=== PATIENT | female | born 1995 | race Caucasian/White ===

== ENCOUNTER → 2020-09-18 13:18 | Outpatient (BNVA) | payer MEDICAID, SELFPAY | PROVIDERS: Family Provider Family Medicine; PCP Family Medicine; Referring Provider Family Medicine; Visit Provider Podiatrist Foot & Ankle Surgery | DX: M79.671 Pain in right foot (principal) | CPT/HCPCS: 73630 ==

== ENCOUNTER 2021-01-09 07:51 | Outpatient (CLI) | payer BC, MEDICAID, SELFPAY ==
--- NOTE | 2021-01-09 08:04 | MR_ITS ---
WS: [id number] MRI HEAD WITH CONTRAST TECHNIQUE: Sagittal T1, T2 axial, T2 axial FLAIR, axial susceptibility weighted imaging, axial diffus ion weighted images, and coronal T2 images were obtained. Pre and post-T1 axial and post T1 coronal i mages. ADC and FSPGR images. CLINICAL INFORMATION: PAPILEDEMA COMPARISON: None. FINDINGS: No evidence restricted diffusion to suggest acute ischemia. Ventricular system and basal cisterns are patent. Prominent Chiari I malformation with cerebellar tonsils 9.5 mm below the foramen magnum exte nding to the posterior arch of C1. Mild crowding at the foramen magnum. Crowding at the level of the brain stem with minimal mass effect at the cervical medullary junction. No edema or signal abnormalit y in the brain stem. No suspicious intracranial signal abnormalities. No hydrocephalus. Normal posterior fossa. Normal vas cular flow voids at the skull base. Incidental left retrocerebellar arachnoid cyst. This measures 2.5 x 4.1 cm. Mastoid air cells are well aerated. Retention cysts in the maxillary sinuses. No hemosider in on susceptibly weighted images. Normal optic chiasm and pituitary infundibulum. Temporal lobes and hippocampal formations are normal in appearance. No signal abnormalities in the mesial temporal lobe s. No abnormal gadolinium enhancement. Incidental benign venous angioma in the right cerebellum. Normal visualized dural venous sinuses. No visualized optic nerve edema. No evidence of optic neuritis. MR/MR head wo/w con [id number] IMPRESSION: 1. No evidence of restricted diffusion to suggest acute ischemia. 2. Prominent Chiari 1 malformation with cerebellar tonsils extending to the C1 arch. Cerebellar tonsils approximately 9.4 mm below the foramen magnum with mi ld crowding at the foramen magnum. Brain stem signal is normal. 3. No intracranial hydrocephalus. 4. Recommend MRI of the cervical and thoracic spine to exclude syrinx. 5. No suspicious intracranial signal abnormalities. 6. No abnormal gadolinium enhancement. Incidental benign venous angioma right cerebellum. 7. Retention cysts in the maxillary sinuses. 8. Incidental benign left retrocerebellar arachnoid cyst.
[2021-01-09] MEDS: gadobenate dimeglumine 20 mL vial IV (08:44)
== END 2021-01-09 07:52 | disposition home or self-care (01) ==
PROVIDERS: PCP Family Medicine; Visit Provider Family Medicine
DX: H47.10 Unspecified papilledema (principal); G93.0 Cerebral cysts; M27.40 Unspecified cyst of jaw; Q28.3 Other malformations of cerebral vessels
CPT/HCPCS: 70553; A9577

== ENCOUNTER → 2021-07-27 14:42 | Outpatient (BNVA) | payer BC, MEDICAID, SELFPAY | PROVIDERS: PCP Family Medicine; Visit Provider Obstetrics & Gynecology | DX: Z12.4 Encounter for screening for malignant neoplasm of cervix (principal); N93.9 Abnormal uterine and vaginal bleeding, unspecified | CPT/HCPCS: 84146; 84443; 88175 ==

== ENCOUNTER 2021-08-11 14:13 | Outpatient (CLI) | payer BC, MEDICAID, SELFPAY ==
--- NOTE | 2021-08-11 14:30 | US_ITS ---
WS: [id number] TRANSABDOMINAL PELVIC AND TRANSVAGINAL PELVIC ULTRASOUND HISTORY: N93.9 - Abnormal uterine and vaginal bleeding, unspecified COMPARISON: None available. Uterus: 9.2 cm x 5.0 cm x 4.0 cm. Normal size anteverted uterus. No far lateral masses. Endometrium: 0.7 cm. The IUD is positioned low in the endometrial canal and extends into the cervix. Dense shadowing from the IUD extends through the endocervical junction. Approximately 10 mm of the IU D extend into the cervix. Right ovary: 2.6 cm x 2.5 cm x 2.1 cm. Normal size. Normal vascularity. Left ovary: 3.7 cm x 3.0 cm x 2.1 cm. Small follicle. Normal vascularity. No free fluid. US/US pelvic with transvaginal IMPRESSION: 1. Abnormally positioned IUD. IUD positioned low and extends into the cervix. 2. Otherwise negative.
== END 2021-08-11 14:14 | disposition home or self-care (01) ==
LOC: RAD 14:13
PROVIDERS: PCP Family Medicine; Visit Provider Obstetrics & Gynecology
DX: N93.9 Abnormal uterine and vaginal bleeding, unspecified (principal); Z30.431 Encounter for routine checking of intrauterine contraceptive device
CPT/HCPCS: 76830; 76856

== ENCOUNTER 2021-11-21 19:56 | Emergency (ER) | payer BC, MEDICAID, SELFPAY ==
[2021-11-21 20:06] VITALS: PULSE 127; RESP 16; TEMP 37.2; O2SAT 95
[2021-11-21 20:09] VITALS: PULSE 80; RESP 18; O2SAT 96
--- NOTE | 2021-11-21 20:21 | XRR_ITS ---
PROCEDURE INFORMATION: Exam: XR Chest Exam date and time: 11/21/2021 8:29 PM Age: 26 years old Clinical indication: Cough; Additional info: Cough fever TECHNIQUE: Imaging protocol: Radiologic exam of the chest. Views: 1 view. COMPARISON: No relevant prior studies available. FINDINGS: Lungs: Right upper lobe pneumonia. Pleural spaces: Unremarkable. No pleural effusion. No pneumothorax. Heart/Mediastinum: Unremarkable. No cardiomegaly. Bones/joints: Unremarkable. XR/XR chest 1V portable [id number] IMPRESSION: Right upper lobe pneumonia.
--- NOTE | 2021-11-21 20:21 | W.ED.GENADLT ---
HPI - General Adult General: Chief complaint: General Medical Stated complaint: light headed, sob, coughing Time Seen by Provider: 11/21/21 20:12 History of Present Illness: 26-year-old female comes in today with complaints of fever, lightheadedness, cough and increased shortness of breath. Patient appears unwell but not toxic. Patient appears in no pain. Patient has used a inhaler before in the past. Patient denies any chronic lung problems or significant chronic conditions. Patient reports symptoms since Tuesday. Patient was seen on and diagnosed with ear infection and started on amoxicillin. Associated symptoms: Reports malaise; Deny nausea or vomiting Review of Systems Const: Reports: fever(s), body aches and malaise Resp: Reports: non-productive cough GI: Denies: nausea or vomiting Neuro: Reports: dizziness PFSH ED PFSH: Medical History Anxiety and depression Diagnosed in 2020 and is on medication managed by PMD. Does not have a therapist/psychiatrist No pertinent past medical history Denies diabetes, asthma, hypertension, seizures, DVT/PE PCP: Dr. Porter Surgical History History of delivery x 2 07/18/2015----Documented low transverse section. Performed by Dr. Roman Olson at [facility] in [place], [place] (2 layer closure of uterus) 03/14/2017----repeat low transverse delivery by Dr. Wheeler at [facility] [place]. Family History Grandfather Diabetes paternal Heart disease paternal Father Hyperlipidemia Hypertension Denies family history of Colon cancer Ovarian cancer Breast cancer Uterine cancer Thyroid condition Stroke Physical Exam Const: COMMON NORMALS: alert HENMT: COMMON NORMALS: normocephalic HEAD & SCALP: normocephalic NOSE: Nasal discharge present THROAT: posterior oropharynx abnormal erythema Neck/C-Spine: COMMON NORMALS: full ROM Resp: COMMON NORMALS: normal respiratory effort AUSCULTATION: rales on the right in the mid lung almeida Cardio: COMMON NORMALS: regular rate and regular rhythm RATE: regular rate RHYTHM: regular rhythm Extremity: COMMON NORMALS: full ROM Neuro: SENSORIUM/ORIENTATION: Yes alert Skin: COMMON NORMALS: turgor normal GENERAL SKIN EXAM: turgor normal Course Vital Signs: Vital signs: Vital Signs Temperature 99.0 F 11/21/21 20:06 Pulse Rate 127 H 11/21/21 20:06 Respiratory Rate 16 11/21/21 20:06 Pulse Oximetry 95 11/21/21 20:06 Oxygen Delivery Me thod 11/21/21 20:06 [facility] - General Adult Medical Decision Making 26-year-old female comes in today with complaints of persistent cough with fever since Tuesday. Patient was started on amoxicillin on continues to have persistent cough with congestion and fever. Patient appears unwell but not toxic. Patient oxygenation is 95% room air. Patient has temperature of 99. Pulse rate was 127. Patient does report that she has been drinking about 5 large cups of water a day. Patient had some crackles in the right middle lung. Differential diagnosis includes viral syndrome, upper respiratory infection, bronchitis, pneumonia. Chest x-ray notes consolidation in the right middle lung suggestive of probable pneumonia. Patient be continued on her amoxicillin we will add azithromycin along with the antibiotic for further coverage. Patient was also given an inhaler and a dose of dexamethasone. Patient reported understanding of care plan need for follow-up or return to the ER. Discharge Plan Discharge Patient Disposition: Home Clinical Impression: Pneumonia Qualifiers: Pneumonia type: due to unspecified organism Laterality: right Lung location: middle lobe of lung Qualified Code(s): J18.9 - Pneumonia, unspecified organism Condition: Stable Prescriptions: New azithromycin 250 mg tablet 250 mg PO DAILY 4 Days Qty: 4 0RF Rx Instructions: start on day 2 of therapy No Action citalopram 10 mg tablet 10 mg PO DAILY norethindrone-e.estradiol-iron [02/26 (28)] 1 mg-20 mcg (21)/75 mg (7) tablet 1 tab PO DAILY Qty: 84 0RF Discharge Orders: Discharge ED (Routine); Ordered 11/21/21 Ordered By: Fahad Phillips Referrals: Joey Porter MD [Primary Care Provider] - Discharge Diet: Usual diet Discharge Activity: Increase activity as tolerated Patient Instructions: Pneumonia (ED), Pain Management Activity Restrictions/Additional Instructions: Continue amoxicillin. Take azithromycin 250 mg daily with the amoxicillin until antibiotics are complete. Drink plenty of water. Use albuterol 2 puffs every 4 hours as needed for cough or chest congestion. Follow-up with primary care in 3 days. Return to ED for new concerns or worsening symptoms. Stand Alone Forms: Work/School Release Coding Level of Care Code ED Logistics Team Lead for Ayesha Fwper Exam Detailed
[2021-11-21] MEDS: azithromycin 250 mg Tablet 500 MG PO (21:27)
[2021-11-21] MEDS: dexamethasone 4 mg Tablet 10 MG PO (21:28)
[2021-11-21] MEDS: cefTRIAXone 1,000 MG in lidocaine 1% 2.1 ML 2.1 MG IM (21:29)
[2021-11-21 21:35] VITALS: BP 148/88; PULSE 112; RESP 18; O2SAT 96
[2021-11-21] MEDS: albuterol 8 gm MDI 2 PUFF INHALATION (21:50)
== END 2021-11-21 21:51 | disposition home or self-care (01) ==
PROVIDERS: Emergency Provider Nurse Practitioner Family; PCP Family Medicine
DX: J18.9 Pneumonia, unspecified organism (principal)
CPT/HCPCS: 71045; 94640; 96372; 99284; J0696; J3535; J8540; Q0144

== ENCOUNTER 2022-01-05 02:17 | Emergency (ER) | payer BC, MEDICAID, SELFPAY ==
[2022-01-05 02:20] VITALS: BP 157/115; PULSE 110; RESP 20; TEMP 37.1; O2SAT 99; BMI 48.4
--- NOTE | 2022-01-05 02:30 | CTR_ITS ---
PROCEDURE INFORMATION: Exam: CT Abdomen And Pelvis Without Contrast Exam date and time: 01/05/2022 2:57 AM Age: 26 years old Clinical indication: Abdominal pain; Right; Prior surgery; Surgery type: Csection; Patient HX: C/O RT flank pain; Additional info: Right flank pain TECHNIQUE: Imaging protocol: Computed tomography of the abdomen and pelvis without contrast. Total images: 677 Radiation optimization: All CT scans at this facility use at least one of these dose optimization techniques: automated exposure control; mA and/or kV adjustment per patient size (includes targeted exams where dose is matched to clinical indication); or iterative reconstruction. COMPARISON: US pelvic with transvaginal 08/11/2021 2:37 PM RADIATION DOSE METRICS: Total DLP (mGy-cm): 1228.26 FINDINGS: Liver: Normal. No mass. Gallbladder and bile ducts: Normal. No calcified stones. No ductal dilation. Pancreas: Normal. No ductal dilation. Spleen: Normal. No splenomegaly. Adrenal glands: Normal. No mass. Kidneys and ureters: 7 mm right-sided ureteropelvic junction stone. Mild hydronephrosis. Stomach and bowel: Unremarkable. No obstruction. No mucosal thickening. Appendix: No evidence of appendicitis. Intraperitoneal space: Unremarkable. No free air. No significant fluid collection. Vasculature: Incidental phleboliths noted. Lymph nodes: 3 mm subpleural nodule at the lung bases have a triangular appearance and are consistent with intrapulmonary lymph nodes. Urinary bladder: Unremarkable as visualized. Reproductive: Unremarkable as visualized. Bones/joints: Unremarkable. No acute fracture. Soft tissues: Unremarkable. CT/CT kidney stone [id number] IMPRESSION: 7 mm right-sided ureteropelvic junction stone. Mild hydronephrosis.
--- NOTE | 2022-01-05 02:30 | W.ED.ABDPA2 ---
HPI - Abdominal Pain General: Chief Complaint: Abdominal Pain Stated Complaint: sharp pain on right side Time Seen by Provider: 01/05/22 02:24 Source: patient Mode of arrival: ambulatory Limitations: no limitations History of Present Illness: 26-year-old female states that she woke up at midnight with severe right-sided flank pain. States it radiates into her groin she had nausea states pain is currently 9 out of 10. She denies any worsening symptoms or improving symptoms. She states not worse with movement or touch no history of kidney stones in the past. Associated Symptoms: Reports nausea; Denies chills and fever(s) Related Data: Date of Last Menstrual Period: 12/12/21 Review of Systems Const: Denies: fever(s), chills, body aches or change in appetite Eyes: Denies: blurry vision or eye discomfort ENMT: Denies: throat pain or dental pain Card: Denies: chest pain Resp: Denies: dyspnea GI: Reports: abdominal pain and nausea : Reports: flank pain Musc: Denies: neck pain or back pain Skin/Breast: Denies: rash Neuro: Denies: headache(s) Psych: Denies: depression Colton/Lymph: Denies: easy bruising All/Imm: Denies: urticaria PFSH ED PFSH: Medical History Anxiety and depression Diagnosed in 2020 and is on medication managed by PMD. Does not have a therapist/psychiatrist No pertinent past medical history Denies diabetes, asthma, hypertension, seizures, DVT/PE PCP: Dr. Porter Surgical History History of delivery x 2 07/18/2015----Documented low transverse section. Performed by Dr. Roman Olson at [facility] in [place], [place] (2 layer closure of uterus) 03/14/2017----repeat low transverse delivery by Dr. Wheeler at [facility] [place]. Family History Grandfather Diabetes paternal Heart disease paternal Father Hyperlipidemia Hypertension Denies family history of Colon cancer Ovarian cancer Breast cancer Uterine cancer Thyroid condition Stroke Female Reproductive History: Date of last menstrual period: 12/12/21 Physical Exam Const: COMMON NORMALS: no acute distress, patient oriented x3 and healthy appearing HENMT: COMMON NORMALS: normocephalic and atraumatic HEAD & SCALP: normocephalic and atraumatic Eye: COMMON NORMALS: Equal, round and reactive pupils present and EOMs intact bilaterally PUPIL: Yes Equal, round and reactive pupils present Neck/C-Spine: COMMON NORMALS: full ROM and supple Chest: COMMONS NORMALS: normal inspection of the chest and normal palpation of entire chest wall Resp: COMMON NORMALS: normal respiratory effort, No retractions, No use of accessory muscles and clear to auscultation bilaterally AUSCULTATION: clear to auscultation bilaterally Cardio: COMMON NORMALS: regular rate, regular rhythm and No murmurs present (Cardio) RATE: regular rate RHYTHM: regular rhythm GI: COMMON NORMALS: Normal to inspection, nondistended, normoactive bowel sounds present, Soft to palpation, non-tender and no masses PALPATION: Yes Soft to palpation Extremity: COMMON NORMALS: normal to inspection and full ROM Neuro: COMMON NORMALS: patient oriented x3, moves all extremities and no focal motor deficits Psych: COMMON NORMALS: mental status grossly normal, Normal thought process present and cooperative THOUGHT PROCESS: Normal thought process present Skin: COMMON NORMALS: no rashes or lesions noted and no wounds GENERAL SKIN EXAM: no rashes or lesions noted Course Vital Signs: Vital signs: Vital Signs Temperature 98.8 F 01/05/22 02:20 Pulse Rate 110 H 01/05/22 02:20 Respiratory Rate 16 01/05/22 03:59 Blood Pressure 157/115 01/05/22 02:20 Pulse Oximetry 99 01/05/22 03:59 Oxygen Delivery Me thod 01/05/22 02:20 MDM - Abdominal Pain Medical Decision Making Patient presents here with flank pain CT shows a kidney stone her pain has improved here we will prescribe her pain meds for home get her follow-up with Dr. Thurston she is return if worsening. Lab Data 01/05/22 02:27 01/05/22 02:27 Labs/Radiology: Radiology Impressions Abdomen/Pelvis CT 01/05/22 02:30 IMPRESSION: 7 mm right-sided ureteropelvic junction stone. Mild hydronephrosis. Laboratory Results WBC 11.7 10^3/uL (4.0-10.0) H 01/05/22 02: RBC 5.14 10^6/uL (4.1-5.3) 01/05/22 02: Hgb 14.2 g/dL (11.5-15.3) 01/05/22 02: Hct 44.3 % (37.0-47.0) 01/05/22 02: MCV 86.2 fl (81-99) 01/05/22 02: MCH 27.6 pg (28.0-34.0) L 01/05/22 02: MCHC 32.1 g/dL (30.0-36.0) 01/05/22 02: RDW 13.0 % (12.1-15.1) 01/05/22 02: Plt Count 301 10^3/cmm (130-400) 01/05/22 02: MPV 10.5 fL (7.4-10.4) H 01/05/22 02: Neut % (Auto) 69.4 % 01/05/22 02: Lymph % (Auto) 19.7 % 01/05/22 02: Blanco % (Auto) 7.6 % 01/05/22 02: Eos % (Auto) 1.9 % 01/05/22 02: Baso % (Auto) 1.0 % 01/05/22 02: Neut # (Auto) 8.11 10^3/uL (1.8-7.7) H 01/05/22 02: Lymph # (Auto) 2.3 10^3/uL (0.8-4.8) 01/05/22 02:27 Blanco # (Auto) 0.9 10^3/uL (0.2-0.9) 01/05/22 02: Eos # (Auto) 0.2 10^3/uL (0.0-0.8) 01/05/22 02: Baso # (Auto) 0.1 10^3/uL (0.0-0.1) 01/05/22 02:27 Nucleated RBC % (auto) 0 % 01/05/22 02: Nucleated RBCs # 0.0 /100WBC 01/05/22 02:27 Sodium 137 mmol/L (136-145) 01/05/22 02:27 Potassium 4.1 mmol/L (3.5-5.1) 01/05/22 02:27 Chloride 105 mmol/L (98-107) 01/05/22 02:27 Carbon Dioxide 21 mmol/L (22-29) L 01/05/22 02:27 Anion Gap 15.1 (5-19) 01/05/22 02:27 BUN 17 mg/dL (6-20) 01/05/22 02:27 Creatinine 0.7 mg/dL (0.5-0.9) 01/05/22 02:27 GFR Calculation 100.4 mL/min (90-130) 01/05/22 02:27 Glucose 109 mg/dL (65-115) 01/05/22 02:27 Calculated Osmolality 286 mOsm/kg (285-295) 01/05/22 02:27 Calcium 9.3 mg/dL (8.5-10.5) 01/05/22 02:27 Total Bilirubin 0.7 mg/dL (0.15-1.2) 01/05/22 02:27 AST 19 U/L (0-32) 01/05/22 02:27 ALT 28 U/L (0-33) 01/05/22 02:27 Alkaline Phosphatase 70 U/L (35-105) 01/05/22 02:27 Total Protein 7.2 g/dL (6.6-8.7) 01/05/22 02:27 Albumin 4.0 g/dL (3.5-5.2) 01/05/22 02:27 Globulin 3.2 g/dL (1.3-4.6) 01/05/22 02:27 Lipase 28 U/L (13-60) 01/05/22 02:27 HCG, Qual Negative (Negative) 01/05/22 02:27 Urine Color Yellow (Yellow) 01/05/22 02:30 Urine Appearance Hazy (CLEAR) A 01/05/22 02:30 Urine pH 5 (5-7) 01/05/22 02:30 Ur Specific Merna 1.030 (1.005-1.030) 01/05/22 02:30 Urine Protein 1+ (Negative) H 01/05/22 02:30 Urine Glucose (UA) Norm (Normal) 01/05/22 02:30 Urine Ketones Negative (Negative) 01/05/22 02:30 Urine Blood 2+ (Negative) H 01/05/22 02:30 Urine Nitrate Negative (Negative) 01/05/22 02:30 Urine Bilirubin Neg (Negative) 01/05/22 02:30 Urine Urobilinogen Norm mg/dL (Negative) 01/05/22 02:30 Ur Leukocyte Esterase 2+ (Negative) H 01/05/22 02:30 Urine RBC 15-25 /hpf (0-2) H 01/05/22 02:30 Urine WBC 80-100 /hpf (0-5) H 01/05/22 02:30 Ur Squamous Epith Cells 0-4 /hpf (0-5) H 01/05/22 02:30 Amorphous Sediment Not Reportable 01/05/22 02:30 Urine Bacteria 2+ /hpf (NONE) H 01/05/22 02:30 Discharge Plan Discharge Patient Disposition: Home Clinical Impression: Kidney stone Condition: Stable Prescriptions: New hydrocodone-acetaminophen 5-325 mg tablet 1 tab PO Q6H PRN (Reason: pain) Qty: 14 0RF ondansetron 4 mg tablet,disintegrating 4 mg PO Q6H PRN (Reason: nausea and vomiting) Qty: 14 0RF Flomax 0.4 mg capsule 0.4 mg PO DAILY Qty: 5 0RF No Action citalopram 10 mg tablet 10 mg PO DAILY norethindrone-e.estradiol-iron [02/26 (28)] 1 mg-20 mcg (21)/75 mg (7) tablet 1 tab PO DAILY Qty: 84 0RF Discharge Orders: Discharge ED (Routine); Ordered 01/05/22 Ordered By: Awilda Anderson Referrals: Arun Thurston MD [Physician] - 1-3 days Joey Porter MD [Primary Care Provider] - Discharge Diet: Advance as tolerated Discharge Activity: Resume usual activity Patient Instructions: Kidney Stones (ED) Coding Level of Care Code ED Records Management Clerk for Chg Fwd Exam Comprehensive
[2022-01-05 02:35] LABS: Basophils # 0.1 10^3/uL (0.0-0.1); Eosinophils # 0.2 10^3/uL (0.0-0.8); Eosinophils % 1.9 %; Hematocrit 44.3 % (37.0-47.0); Hemoglobin 14.2 g/dL (11.5-15.3); Lymphocytes # 2.3 10^3/uL (0.8-4.8); Lymphocytes % 19.7 %; Mean Corpuscular HGB Conc 32.1 g/dL (30.0-36.0); Mean Corpuscular Hemoglobin 27.6 pg (28.0-34.0); Mean Corpuscular Volume 86.2 fl (81-99); Mean Platelet Volume 10.5 fL (7.4-10.4); Monocytes # 0.9 10^3/uL (0.2-0.9); Monocytes % 7.6 %; Neutrophils # 8.11 10^3/uL (1.8-7.7); Neutrophils % 69.4 %; Nucleated Red Blood Cells % 0 %; Platelet Count 301 10^3/cmm (130-400); Red Blood Count 5.14 10^6/uL (4.1-5.3); White Blood Count 11.7 10^3/uL (4.0-10.0)
[2022-01-05] MEDS: ondansetron 2 mg/ML SDV 2 mL 4 MG IVP (02:41)
[2022-01-05] MEDS: sodium chloride 0.9% 1,000 ML 999 ML IV (02:41)
[2022-01-05] MEDS: HYDROmorphone 1 mg/mL INJ 1 mL IVP ×2 (02:41→03:59)
[2022-01-05 02:47] LABS: HCG, Serum Qual Negative (Negative)
[2022-01-05 02:53] LABS: Alanine Aminotransferase 28 U/L (0-33); Alkaline Phosphatase 70 U/L (35-105); Anion Gap 15.1 (5-19); Aspartate Amino Transferase 19 U/L (0-32); Blood Urea Nitrogen 17 mg/dL (6-20); Calcium 9.3 mg/dL (8.5-10.5); Carbon Dioxide 21 mmol/L (22-29); Chloride 105 mmol/L (98-107); Creatinine Clr Calc Pharmacy 148.9171; Globulin 3.2 g/dL (1.3-4.6); Glomerular Filtration Rate 100.4 mL/min (90-130); Glucose 109 mg/dL (65-115); Lipase 28 U/L (13-60); Osmolality Calculated 286 mOsm/kg (285-295); Potassium 4.1 mmol/L (3.5-5.1); Sodium 137 mmol/L (136-145); Total Bilirubin 0.7 mg/dL (0.15-1.2); Total Protein 7.2 g/dL (6.6-8.7)
[2022-01-05 02:58] LABS: Urine Appearance Hazy (CLEAR); Urine Color Yellow (Yellow)
[2022-01-05 02:59] LABS: Add Urine Microscopic? YES; Bilirubin Urine Neg (Negative); Blood Urine 2+ (Negative); Glucose Urine UA Norm (Normal); Ketones Urine Negative (Negative); Leukocyte Esterase Urine 2+ (Negative); Nitrate Urine Negative (Negative); Protein Urine 1+ (Negative); Urobilinogen Urine Norm (Negative); pH Urine 5 (5-7)
[2022-01-05 03:00] LABS: Add Urine Culture? Yes; Bacteria Urine 2+ /hpf; RBC Urine 15-25 /hpf (0-2); Squamous Epithelial Cell Urine 0-4 /hpf (0-5); WBC Urine 80-100 /hpf (0-5)
[2022-01-05 03:59] VITALS: RESP 16; O2SAT 99
[2022-01-05 05:14] VITALS: BP 128/85; PULSE 96; RESP 16; O2SAT 97
--- NOTE | 2022-01-05 10:58 | DCPLANNER ---
Addendum entered by Sharmila Hoffman 01/21/22 15:14: Patient had a follow up appointment scheduled with urology - patient did attend appointment. Original Note: software developer manager had message to schedule a follow up appointment for patient with urology. software developer manager sent patients information to the front office staff at urology. Patients information will be printed and reviewed. Clinic will call patient with appointment information.
== END 2022-01-05 05:15 | disposition home or self-care (01) ==
PROVIDERS: Nurse Practitioner Family; Emergency Provider Emergency Medicine; PCP Family Medicine
DX: N20.0 Calculus of kidney (principal); R11.0 Nausea
CPT/HCPCS: 74176; 80053; 81001; 83690; 84703; 85025; 87077; 87086; 87186; 96361; 96374; 96375; 99285; J1170; J2405; J7030

== ENCOUNTER 2022-01-19 09:52 | Outpatient (CLI) | payer BC, MEDICAID, SELFPAY ==
--- NOTE | 2022-01-19 10:00 | XR_ITS ---
WS: [id number] KUB, AP view, 01/19/2022 Clinical Data: STONES Comparison: CT abdomen pelvis, 01/05/2022 Findings: There is a 0.8 cm calcification adjacent to the right L3 transverse process corresponding to the righ t UPJ calculus. No abnormal intraabdominal masses are seen. There is no dilatated small bowel or evidence of obstruct ion. There is air in the stomach, small bowel and colon. The bladder is partly full. XR/XR KUB [id number] Impression: 0.8 cm calcification corresponding to right UPJ calculus.
== END 2022-01-19 09:53 | disposition home or self-care (01) ==
LOC: RAD 09:54
PROVIDERS: PCP Family Medicine; Visit Provider Urology
DX: N20.0 Calculus of kidney (principal)
CPT/HCPCS: 74018

== ENCOUNTER 2022-01-25 05:40 | Day surgery (SDC) | payer BC, MEDICAID, SELFPAY ==
[2022-01-22 13:36] VITALS: BMI 49.4
[2022-01-25] VITALS (7 sets, daily range): BP systolic 98–158; BP diastolic 58–89; PULSE 96–125; RESP 17–21; TEMP 36.4–36.6; O2SAT 96–98
--- NOTE | 2022-01-25 05:44 | XRR_ITS ---
PROCEDURE INFORMATION: Exam: XR Abdomen Exam date and time: 01/25/2022 5:57 AM Age: 26 years old Clinical indication: Other: RT kidney stone; Additional info: Preop right eswl TECHNIQUE: Imaging protocol: Radiologic exam of the abdomen. Views: Frontal supine view of the abdomen. 1 View. COMPARISON: CR XR KUB [id number] 01/19/2022 10:00 AM FINDINGS: Gastrointestinal tract: No abnormally dilated air-filled bowel loops identified. Bones/joints: Calcifications in the right paravertebral region at the level of the inferior endplate of L3, similar to prior exam likely consistent with ureteropelvic stones. XR/XR KUB [id number] IMPRESSION: Calcifications in the right paravertebral region at the level of the inferior endplate of L3, similar to prior exam, likely consistent with ureteropelvic stones.
[2022-01-25 06:17] LABS: OR HCG Qualitative Urine Negative (Negative)
[2022-01-25] MEDS: sodium chloride 0.9% 1,000 ML 30 ML IV (06:21)
--- NOTE | 2022-01-25 06:45 | W.PM.OPSUD ---
Surgery/Procedure H&P Update DATE OF PROCEDURE: January 25, 2022 DATE H&P PERFORMED: 01/19/22 H&P UPDATE INFORMATION: I have reviewed H&P completed within last 30 days, I have examined patient prior to procedure, No changes to prior documentation and H&P is in [facility] EMR on date indicated CHANGES TO PREVIOUS DOCUMENTATION: We definitely plan to put a stent out first followed by ESWL. If difficulty passing a wire based on anatomy will shoot a retrograde, consider ureteroscopy etc. as discussed previously in clinic PREOP DIAGNOSIS: Refractory large RIGHT UPJ stone with obstruction PLANNED PROCEDURE: Operation Date: 01/25/22 07:00 Proposed Procedures p CYSTOSCOPY RIGHT EXTRACORPOREAL SHOCKWAVE LITHOTRIPSY STENT POSSIBLE URETEROSCOPY [id number], 53799 N20.1(Not Applicable) - Arun Thurston MD s ESWL(Right) - Arun Thurston MD
--- NOTE | 2022-01-25 06:51 | P.OP_ITS ---
Operative Report Date of procedure: January 25, 2022 Pre-op diagnosis: Refractory large RIGHT UPJ stone with obstruction Post-op diagnosis: Refractory large RIGHT UPJ stone with obstruction Procedure done: 1. Cystoscopy RIGHT: Ureteral stent 2. Right UPJ stone extracorporeal shockwave lithotripsy Implants: 6 [place] by 26 cm right double-pigtail stent without string. Specimens removed/disposition: None Pathology: None Surgeon: Bertrand Resource Engineer: Sotero Estimated blood loss: none Urine output: Not measured Complications: None Findings: Anesthesia: General Condition: Stable Disposition: PACU Intraoperative findings: * 6 x 26 [place] stent placed without difficulty * Stone treated with 2500 shocks with excellent change. Brief History: Tia is a very pleasant 26-year-old white female with an 8 mm right UPJ stone causing obstruction and refractory symptoms. She is admitted for extracorporal shockwave lithotripsy with stent. 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 We plan to put a stent in first, possible retrograde if necessary, possible ureteroscopy if wire cannot be easily advanced Procedure: After routine preoperative evaluation examination and obtaining of informed consent she was taken to the operating suite on 01/25/2022 where general anesthesia was administered without difficulty. Prepped and draped in usual sterile fashion in dorsolithotomy position after appropriate timeout was performed, SCDs confirmed to be functioning, preoperative antibiotics administered, beta-aniceto protocol confirmed. 21 [place] cystoscope with 30 degree lens was introduced into the urethra meatus and advanced into the bladder without difficulty. No stones were seen in the bladder. Flexible tip guidewire was then advanced up the right ureter bypassing the stone curling in the area of the upper pole calyx. A 6 [place] by 26 cm double-pigtail stent was advanced over the guidewire through the cystoscope into appropriate position as confirmed via fluoroscopy and cystoscopy. Stent was confirmed to be working urine. Bladder was drained and the cystoscopic portion of the procedure was completed. Repositioned into supine position on the Dornier unit such that the stone was located at the focal point utilizing biplanar fluoroscopy. The shock head was initially positioned anteriorly. Stone was easily focused upon. Total number of shocks administered 2500, intensity initiated at 1 and advanced to 6. 3- minute pause after about 300 shocks administered. Results: Excellent change. She tolerated procedure well without complications and was awakened in the operating room and returned to the recovery room in stable condition. PLANS: 1. Anticipate discharge from outpatient surgery 2. Follow-up in 1 week with HENRIQUE
[2022-01-25] MEDS: levofloxacin-dextrose 5 % 500 MG/100 ML PREMIX 100 MG IV (07:00)
--- NOTE | 2022-01-25 07:54 | ANES.PREANE2 ---
Pre-Anesthetic Assessment Height/Weight: Height 1.57 m Weight 122.47 kg Temp Pulse Resp BP Pulse Ox O2 Del Method 97.6 F 125 H 17 128/88 96 01/25/22 06:11 01/25/22 06:11 01/25/22 06:11 01/25/22 06:11 01/25/22 06:11 01/25/22 06:11 Preop Diagnosis: Refractory large RIGHT UPJ stone with obstruction Operation Date: 01/25/22 07:00 Proposed Procedures p CYSTOSCOPY RIGHT EXTRACORPOREAL SHOCKWAVE LITHOTRIPSY STENT POSSIBLE URETEROSCOPY 62892, 47650 N20.1(Not Applicable) - Arun Thurston MD s ESWL(Right) - Arun Thurston MD Familial anesthetic complications: none Was Beta Adán taken within 24 hours: N/A Was Clonidine taken within 24 hours: N/A Last intake: Intake Last Liquid Date 01/24/22 Last Liquid Time 20:00 Last Solid Date 01/24/22 Last Solid Time 17:00 Social No alcohol and No tobacco Exam alert, oriented x 3, clear to auscultation bilaterally and regular rate & rhythm Airway Submandibular: within normal limits Cervical ROM: within normal limits Mallampati: Class II Dentition: full renal calculi Metabolic Morbid Obesity Neuropsych Anxiety and Depression Anesthetic Plan ASA status: 2 Anesthesia: General Medications/Allergies Home Medications Medication Instructions Recorded Confirmed Last Taken Type oxycodone-acetaminophen 5 mg-325 1 tab PO Q6H PRN Renal colic 5 01/19/22 01/25/22 01/24/22 20:00 Rx mg tablet (Percocet) days #20 tabs Allergies Allergy/AdvReac Type Severity Reaction Status Date / Time No Known Allergies Allergy Verified 01/25/22 06:10 Current Medications Generic Name Dose Route Start Last Admin Trade Name Freq PRN Reason Stop Dose Admin Sodium Chloride 1,000 mls @ 30 mls/hr 01/25/22 05:45 01/25/22 06:21 Sodium Chloride 0.9% IV 01/26/22 05:44 30 mls/hr .Q24H CATA Administration PFSH Anesthesia Medical History Anxiety and depression Diagnosed in 2020 and is on medication managed by PMD. Does not have a therapist/psychiatrist No pertinent past medical history Denies diabetes, asthma, hypertension, seizures, DVT/PE PCP: Dr. Porter Surgical History History of delivery x 2 07/18/2015----Documented low transverse section. Performed by Dr. Roman Olson at [facility] in [place], [place]. (2 layer closure of uterus) 03/14/2017----repeat low transverse delivery by Dr. Wheeler at [facility] [place]. Family History Grandfather Diabetes paternal Heart disease paternal Father Hyperlipidemia Hypertension CAD (coronary artery disease) Mother Healthy adult Denies family history of Colon cancer Ovarian cancer Breast cancer Uterine cancer Thyroid condition Stroke Female Reproductive History Date of last menstrual period: 01/07/22 Data Anesthesia Cardiac Studies: No Data to Display
--- NOTE | 2022-01-25 12:44 | ANE.PACU2 ---
Inpatient post-anesthesia follow up: Airway intact: Yes Vital signs: Temperature 98 F Pulse Rate 96 Respiratory Rate 17 Blood Pressure 158/89 Pulse Oximetry 97 Oxygen Delivery Me thod Room Air Oxygen Flow Rate 6 Fraction of Inspir ed Oxygen Hydration adequate: Yes Nausea and vomiting: No Pain level: 2 Mental status: Baseline
== END 2022-01-25 09:15 | disposition home or self-care (01) ==
PROVIDERS: PCP Family Medicine; Visit Provider Urology
PROC: 0TJB8ZZ Inspection of Bladder, Via Natural or Artificial Opening Endoscopic (ICD-10-PCS; CPT 52000; principal; 2022-01-25 07:00)
PROC: (CPT 50590; 2022-01-25 07:00)
PROC: (CPT 50605; 2022-01-25 07:00)
DX: N20.1 Calculus of ureter (principal); E66.01 Morbid (severe) obesity due to excess calories; Z68.42 Body mass index [BMI] 45.0-49.9, adult
CPT/HCPCS: 50590; 52332; 74018; 81025; 84703; C2625; J1100; J1200; J1956; J2250; J2405; J2704; J2710; J3010; J3490; J7030

== ENCOUNTER 2022-02-03 12:57 | Outpatient (CLI) | payer BC, MEDICAID, SELFPAY ==
--- NOTE | 2022-02-03 13:11 | XR_ITS ---
WS: [id number] KUB, AP view, 02/03/2022 Clinical Data: STONES Comparison: KUB, 01/25/2022 Findings: There is a right ureteral stent in good position. There is a 0.8 cm calcification adjacent to the pro ximal ureteral stent probably corresponding to the UPJ stone. No abnormal intraabdominal masses are seen. There is no dilatated small bowel or evidence of obstruct ion. XR/XR KUB [id number] Impression: 1. Right ureteral stent. 2. Probable right UPJ stone
== END 2022-02-03 12:58 | disposition home or self-care (01) ==
LOC: RAD 12:59
PROVIDERS: PCP Family Medicine; Visit Provider Urology
DX: N20.1 Calculus of ureter (principal)
CPT/HCPCS: 74018; 81003

== ENCOUNTER 2022-02-12 07:31 | Outpatient (CLI) | payer BC, MEDICAID, SELFPAY ==
--- NOTE | 2022-02-12 07:40 | XR_ITS ---
WS: [id number] KUB, AP view, 02/12/2022 Clinical Data: Stones Comparison: KUB, 02/03/2022 Findings: No abnormal intraabdominal masses are seen. There is no dilatated small bowel or evidence of obstruct ion. The right ureteral stent remains in good position. The possible proximal right ureteral calculus is not seen. There may be a calculus overlying the midportion of the right kidney. XR/XR KUB [id number] Impression: 1. Right ureteral stent. 2. Possible right renal calculus.
== END 2022-02-12 07:32 | disposition home or self-care (01) ==
LOC: RAD 07:34
PROVIDERS: PCP Family Medicine; Visit Provider Urology
DX: N20.1 Calculus of ureter (principal); Z96.0 Presence of urogenital implants
CPT/HCPCS: 74018

== ENCOUNTER 2023-01-24 16:33 | Emergency (ER) | payer BC, MEDICAID, SELFPAY ==
[2023-01-24 16:37] VITALS: BP 173/104; PULSE 108; RESP 16; TEMP 36.4; O2SAT 96; BMI 51.2
[2023-01-24] MEDS: tizanidine 4 mg Tablet PO (17:34)
[2023-01-24] MEDS: dexamethasone 10 mg/mL INJ IM (17:34)
[2023-01-24] MEDS: ketorolac 60 mg/2 mL INJ IM (17:34)
[2023-01-24 17:54] VITALS: RESP 15
--- NOTE | 2023-01-25 01:21 | ED_ITS ---
HPI - Neck Pain/Injury General: Chief Complaint: Neck Pain/Injury Stated Complaint: RT shoulder / RT abd pain Time Seen by Provider: 01/24/23 17:05 Source: patient and family Mode of arrival: ambulatory Limitations: no limitations History of Present Illness: Patient presents emergency department today accompanied by significant other for evaluation treatment of right-sided neck, shoulder, and torso pain. Patient states that when she awoke this morning she had tightness and pain in this area. She does note that with range of motion and movement the pain gets worse. Patient denies recent illness or fevers. Pain does not affect her abdomen and she has not had any difficulty breathing. She has not had any cough. Patient denies headaches or sore throat. She has not had fever. Patient denies any injury or known repetitive motion the day before. No others with similar symptoms at home. Review of Systems General: Reports: 10 or more systems reviewed and unremarkable except in HPI and below PFSH ED PFSH: Medical History Urolithiasis Anxiety and depression Diagnosed in 2020 and is on medication managed by PMD. Does not have a erapist/psychiatrist Surgical History History of lithotripsy History of eye surgery History of delivery x 2 07/18/2015----Documented low transverse section. Performed by Dr. Roman Olson at [facility] in [place], [place]. (2 layer closure of uterus) 03/14/2017----repeat low transverse delivery by Dr. Wheeler at [facility] [place]. Family History Grandfather Diabetes paternal Heart disease paternal Father Hyperlipidemia Hypertension CAD (coronary artery disease) Mother Healthy adult Denies family history of Colon cancer Ovarian cancer Breast cancer Uterine cancer Thyroid disease Stroke Social History Smoking and tobacco/nicotine status: never used tobacco/nicotine Alcohol intake: never Substance/Drug Use: never Household members: spouse and children Marital status: Current occupational status: employed Physical Exam Const: COMMON NORMALS: no acute distress, patient oriented x3 and alert HENMT: COMMON NORMALS: normocephalic, atraumatic and hearing grossly normal bilaterally HEAD & SCALP: normocephalic and atraumatic Eye: COMMON NORMALS: Equal, round and reactive pupils present, EOMs intact bilaterally and conjunctivae normal CONJUNCTIVA: Yes conjunctivae normal PUPIL: Yes Equal, round and reactive pupils present Neck/C-Spine: COMMON NORMALS: no meningeal signs OTHER: Patient does have range of motion of her neck independently but indicates strain of her muscles and discomfort with certain [id number] motion of the chin and ear to shoulder movement. Lymph: LYMPHATIC: no lymphadenopathy noted Resp: COMMON NORMALS: normal respiratory effort, No retractions and No use of accessory muscles Cardio: COMMON NORMALS: regular rate RATE: regular rate Back/Pelvis: OTHER: Nontender along the vertebrae. Extremity: NARRATIVE EXTREMITY EXAM: Patient has full range of motion of the extremities and is independently ambulatory and weightbearing here in the emergency department. Pain is reproducible with movement and palpation. Neuro: COMMON NORMALS: patient oriented x3 SENSORIUM/ORIENTATION: Yes alert MENINGEAL SIGNS: Yes no meningeal signs CRANIAL NERVES: Yes CN normal except as noted SPEECH: speech normal GAIT: Yes Normal gait present Psych: COMMON NORMALS: mental status grossly normal, Normal thought process present, cooperative and normal affect THOUGHT PROCESS: Normal thought process present Skin: COMMON NORMALS: no rashes or lesions noted and turgor normal GENERAL SKIN EXAM: no rashes or lesions noted and turgor normal Course Vital Signs: Vital signs: Vital Signs Temperature 97.5 F L 01/24/23 16:37 Pulse Rate 108 H 01/24/23 16:37 Respiratory Rate 15 01/24/23 17:54 Blood Pressure 173/104 01/24/23 16:37 Pulse Oximetry 96 01/24/23 16:37 Oxygen Delivery Me thod Room Air 01/24/23 16:37 MDM - Neck Pain/Injury Medical Decision Making Patient's physical examination is consistent with musculoskeletal pains. Patient shows no concerns for meningeal signs or neurological deficit. 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 She was also treated for the next several days with prescription sent to her pharmacy. We also encouraged [id number]-[id number] options and at home remedies such as warm heat. Patient is encouraged to avoid any strenuous activity or heavy lifting and a note for her employer was provided for the next couple of days. Recommended a follow-up appoint with primary care for general recheck or, should be seen and reevaluated sooner for any acute change or worsening. Patient verbalized understanding and agreement to treatment plan. Differential Diagnosis Likely strain of neck muscle; Unlikely disc disorder of cervical region, whiplash injury to neck, closed subluxation of cervical spine, fracture of cervical spine without lesion of spinal cord, cervical radiculopathy, vertebral artery dissection or torticollis No radiology studies performed this visit Discharge Plan Discharge Patient Disposition: Home Clinical Impression: Spasm of thoracic back muscle Strain of neck muscle Qualifiers: Encounter type: initial encounter Qualified Code(s): S16.1XXA - Strain of muscle, fascia and tendon at neck level, initial encounter Condition: Stable Prescriptions: New tizanidine 4 mg tablet 4 mg PO Q8H PRN (Reason: muscle spasticity) Qty: 15 0RF methylprednisolone 4 mg tablets,dose pack See Rx Instructions PO .COMPLEX Qty: 21 0RF Rx Instructions: orally per package directions naproxen 500 mg tablet 500 mg PO BID PRN (Reason: pain) Qty: 20 0RF No Action oxycodone-acetaminophen [Percocet] 5-325 mg tablet 1 tab PO Q6H PRN (Reason: Renal colic) 5 Days Qty: 20 0RF Discharge Orders: Discharge ED (Routine); Ordered 01/24/23 Ordered By: Dayanna Ferrer Referrals: Joey Porter MD [Primary Care Provider] - Discharge Diet: Usual diet Discharge Activity: Increase activity as tolerated Activity Restrictions/Additional Instructions: Based on the description, location, and ability to replicate pain with movement, he most likely have a musculoskeletal strain. Unfortunately, this can happen for several reasons including trauma, injury, and illness. Sometimes, it does not take much-even just sleeping wrong 1 night, to cause muscle tightness and spasming. We will treat with medication to help with muscle pain. Be aware that the tizanidine can make you drowsy, sedated, and fatigue. Do not drive while taking this medication. You can still use things like Tylenol and heating pads at home for the next few days as well. Avoid any excessive lifting or strenuous activity with your upper body or torso for the next few days as well. I provided a note for your employer. Stand Alone Forms: Work/School Release Coding Level of Care Code ED Line Camera Operator for Ayesha Worthy
== END 2023-01-24 17:55 | disposition home or self-care (01) ==
PROVIDERS: Emergency Provider Physician Assistant; PCP Family Medicine
DX: M62.830 Muscle spasm of back (principal); S16.1XXA Strain of muscle, fascia and tendon at neck level, initial encounter; X58.XXXA Exposure to other specified factors, initial encounter
CPT/HCPCS: 96372; 99284; J1100; J1885

== ENCOUNTER 2023-01-27 11:06 | Emergency (ER) | payer BC, MEDICAID, SELFPAY ==
[2023-01-27 11:09] VITALS: BP 149/99; PULSE 93; RESP 16; TEMP 36.7; O2SAT 98; BMI 51.2
--- NOTE | 2023-01-27 11:53 | ED_ITS ---
HPI - Headache General: Chief Complaint: Headache Stated Complaint: head pain Time Seen by Provider: 01/27/23 11:20 Source: patient Mode of arrival: ambulatory Limitations: no limitations History of Present Illness: 27-year-old female states she had a head ache that started yesterday afternoon. She had a history of headaches and migraines states this headache began gradually and is worsened is currently 10 out of 10 she does have photophobia phonophobia denies any fever denies any neck pain she had no vomiting. Associated symptoms: Deny chest pain, fever(s), nausea, rash or vomiting Review of Systems Const: Denies: fever(s), chills, body aches or change in appetite Eyes: Denies: blurry vision or eye discomfort ENMT: Denies: throat pain or dental pain Card: Denies: chest pain Resp: Denies: dyspnea GI: Denies: abdominal pain, nausea, vomiting or diarrhea Musc: Denies: neck pain or back pain Skin/Breast: Denies: rash Neuro: Reports: headache(s) PFSH ED PFSH: Medical History Urolithiasis Anxiety and depression Diagnosed in 2020 and is on medication managed by PMD. Does not have a therapist/psychiatrist Surgical History History of lithotripsy History of eye surgery History of delivery x 2 07/18/2015----Documented low transverse section. Performed by Dr. Roman Olson at [facility] in [place], [place]. (2 layer closure of uterus) 03/14/2017----repeat low transverse delivery [place]. [place] [facility]. Family History Grandfather Diabetes paternal Heart disease paternal Father Hyperlipidemia Hypertension CAD (coronary artery disease) Mother Healthy adult Denies family history of Colon cancer Ovarian cancer Breast cancer Uterine cancer Thyroid disease Stroke Social History Smoking and tobacco/nicotine status: never used tobacco/nicotine Alcohol intake: never Substance/Drug Use: never Household members: spouse and children Marital status: Current occupational status: employed Female Reproductive History: Date of last menstrual period: 12/28/22 Physical Exam Const: COMMON NORMALS: no acute distress, patient oriented x3 and healthy appearing HENMT: COMMON NORMALS: normocephalic and atraumatic HEAD & SCALP: normocephalic and atraumatic Eye: COMMON NORMALS: Equal, round and reactive pupils present and EOMs intact bilaterally PUPIL: Yes Equal, round and reactive pupils present Neck/C-Spine: COMMON NORMALS: full ROM, supple and no meningeal signs Chest: COMMONS NORMALS: normal inspection of the chest Resp: COMMON NORMALS: normal respiratory effort Extremity: COMMON NORMALS: normal to inspection and full ROM Neuro: COMMON NORMALS: patient oriented x3, moves all extremities and no focal motor deficits MENINGEAL SIGNS: Yes no meningeal signs Psych: COMMON NORMALS: mental status grossly normal, Normal thought process present and cooperative THOUGHT PROCESS: Normal thought process present Skin: COMMON NORMALS: no rashes or lesions noted and no wounds GENERAL SKIN EXAM: no rashes or lesions noted Course Vital Signs: Vital signs: Vital Signs Temperature 98.1 F 01/27/23 11:09 Pulse Rate 93 01/27/23 11:09 Respiratory Rate 66 H 01/27/23 12:31 Blood Pressure 144/86 01/27/23 12:31 Pulse Oximetry 98 01/27/23 12:31 MDM - Headache Medical Decision Making Patient presents with a headache likely migraine headache she feels much improved here no signs of meningitis no signs of subarachnoid hemorrhage she is to follow-up with PCP and return if worsening she understands agrees to plan. Medical Records I reviewed the patient's medical records. No radiology studies performed this visit Discharge Plan Discharge Patient Disposition: Home Clinical Impression: Headache Qualifiers: Headache type: unspecified Headache chronicity pattern: acute headache Intractability: not intractable Qualified Code(s): R51.9 - Headache, unspecified Condition: Stable Prescriptions: No Action tizanidine 4 mg tablet 4 mg PO Q8H PRN (Reason: muscle spasticity) Qty: 15 0RF methylprednisolone 4 mg tablets,dose pack See Rx Instructions PO .COMPLEX Qty: 21 0RF Rx Instructions: orally per package directions naproxen 500 mg tablet 500 mg PO BID PRN (Reason: pain) Qty: 20 0RF Discharge Orders: Discharge ED (Routine); Ordered 01/27/23 Ordered By: Awilda Anderson Referrals: Joey Porter MD [Primary Care Provider] - 1-3 days Discharge Diet: Advance as tolerated Discharge Activity: Resume usual activity Patient Instructions: General Headache (ED) Coding Level of Care Code ED Senior Javascript Developer for Ayesha Worthy
[2023-01-27] MEDS: ketorolac 30 mg/mL INJ 15 MG IVP (12:22)
[2023-01-27] MEDS: diphenhydrAMINE 50 mg/mL SDV 1mL IVP (12:23)
[2023-01-27] MEDS: metoclopramide 5 mg/mL SDV 2 mL 10 MG IVP (12:24)
[2023-01-27 12:31] VITALS: BP 144/86; RESP 66; O2SAT 98
[2023-01-27 13:15] VITALS: RESP 19
[2023-01-27] MEDS: morphine 4 mg/mL SDV 1 mL IVP (13:15)
== END 2023-01-27 13:38 | disposition home or self-care (01) ==
PROVIDERS: Emergency Provider Emergency Medicine; PCP Family Medicine
DX: R51.9 Headache, unspecified (principal)
CPT/HCPCS: 96374; 96375; 99284; J1200; J1885; J2270; J2765

== ENCOUNTER 2024-01-21 21:38 | Emergency (ER) | payer BC, MEDICAID, SELFPAY ==
[2024-01-21 21:46] VITALS: BP 157/86; PULSE 91; RESP 15; TEMP 36.6; O2SAT 96; BMI 53.7
[2024-01-21 22:25] LABS: Basophils # 0.1 10^3/uL (0.0-0.1); Eosinophils # 0.2 10^3/uL (0.0-0.8); Eosinophils % 4.1 %; Lymphocytes # 1.7 10^3/uL (0.8-4.8); Lymphocytes % 28.8 %; Mean Corpuscular HGB Conc 32.3 g/dL (30-55); Mean Corpuscular Hemoglobin 27.4 pg (27-33); Mean Corpuscular Volume 84.9 fl (85-98); Mean Platelet Volume 10.7 fL (7.4-10.4); Monocytes # 0.7 10^3/uL (0.2-0.9); Monocytes % 11.6 %; Neutrophils # 3.13 10^3/uL (1.8-7.7); Nucleated Red Blood Cells % 0 %; Platelet Count 249 10^3/cmm (157-399); Red Blood Count 4.71 10^6/uL (3.85-5.65); Red Cell Distribution Width 12.7 % (12.1-15.1)
[2024-01-21 22:52] LABS: Slide Review Slide Review Perform
[2024-01-21 23:04] LABS: Alanine Aminotransferase 16 U/L (0-33); Albumin Level 3.6 g/dL (3.5-5.2); Alkaline Phosphatase 73 U/L (35-105); Anion Gap 14.6 (5-19); Aspartate Amino Transferase 16 U/L (0-32); Blood Urea Nitrogen 11 mg/dL (6-20); Calcium 8.8 mg/dL (8.5-10.5); Carbon Dioxide 24 mmol/L (22-29); Chloride 103 mmol/L (98-107); Creatinine Clr Calc Pharmacy 121.4354; Globulin 2.9 g/dL (1.3-4.6); Glucose 133 mg/dL (65-115); Osmolality Calculated 287 mOsm/kg (285-295); Potassium 3.6 mmol/L (3.5-5.1); Sodium 138 mmol/L (136-145); Total Bilirubin 0.3 mg/dL (0.15-1.2); Total Protein 6.5 g/dL (6.6-8.7)
[2024-01-22] VITALS (8 sets, daily range): BP systolic 114–176; BP diastolic 68–97; PULSE 84–90; RESP 16; O2SAT 96–98
--- NOTE | 2024-01-22 00:10 | ED_ITS ---
Documented by User: CHARAN Rao 01/22/24 00:48 HPI - 2 General: Chief complaint: Vaginal Bleeding Stated complaint: 5 weeks pregant, spotting, cramping Time Seen by Provider: 01/22/24 00:09 History of Present Illness: Patient is a 28-year-old female that is G4, P3. She reports that she is approximately 5 weeks . She developed light spotting that started approximately 1 hour prior to arrival in the emergency department. Describes it as a dark brown stringy discharge. She reports some mild cramping. 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 Has not seen for this Date of Last Menstrual Period: 12/09/23 Related Data Previous Rx's Medication Instructions Recorded methylprednisolone 4 mg tablets in See Rx Instructions PO .COMPLEX 01/24/23 a dose pack #21 ea naproxen 500 mg tablet 500 mg PO BID PRN pain #20 tabs 01/24/23 tizanidine 4 mg tablet 4 mg PO Q8H PRN muscle spasticity 01/24/23 #15 tabs Allergies Allergy/AdvReac Type Severity Reaction Status Date / Time No Known Allergies Allergy Verified 01/24/23 16:37 Review of Systems 2 General: Reports: 10 or more systems reviewed and unremarkable except in HPI and below PFSH ED 2 PFSH: Medical History Urolithiasis Anxiety and depression Diagnosed in 2020 and is on medication managed by PMD. Does not have a therapist/psychiatrist Surgical History History of lithotripsy History of eye surgery History of delivery x 2 07/18/2015----Documented low transverse section. Performed by Dr. Roman Olson at [facility] in [place], [place]. (2 layer closure of uterus) 03/14/2017----repeat low transverse delivery by Dr. Wheeler at [facility]. Family History Grandfather Diabetes paternal Heart disease paternal Father Hyperlipidemia Hypertension CAD (coronary artery disease) Mother Healthy adult Denies family history of Colon cancer Ovarian cancer Breast cancer Uterine cancer Thyroid disease Stroke Social History Smoking and tobacco/nicotine status: never used tobacco/nicotine Alcohol intake: never Substance/Drug Use: never Household members: spouse and children Marital status: Current occupational status: employed Female Reproductive History: Date of last menstrual period: 12/09/23 Physical Exam 2 Const: COMMON NORMALS: no acute distress, patient oriented x3 and alert G ENERAL APPEARANCE: cooperative ORIENTATION/CONSCIOUSNESS: Yes awake, Yes oriented to person, Yes oriented to place and Yes oriented to time Neck/C-Spine: COMMON NORMALS: full ROM GENERAL: Yes normal visual inspection Chest: COMMONS NORMALS: normal inspection of the chest Resp: COMMON NORMALS: normal respiratory effort, No retractions and No use of accessory muscles EFFORT & INSPECTION: Yes able to speak in complete sentences and Yes symmetric chest movement Cardio: COMMON NORMALS: regular rate and Peripheral pulses 2+ throughout R ATE: regular rate PERIPHERAL PULSES: Peripheral pulses 2+ throughout GI: COMMON NORMALS: Normal to inspection, nondistended, normoactive bowel sounds present, Soft to palpation and non-tender INSPECTION: Yes normal to inspection PALPATION: Yes Soft to palpation RECTAL EXAM: deferred Extremity: COMMON NORMALS: normal to inspection GENERAL: Yes normal exam except as noted Neuro: COMMON NORMALS: patient oriented x3 SENSORIUM/ORIENTATION: Yes alert, Yes oriented to person, Yes oriented to place and Yes oriented to time CRANIAL NERVES: Yes CN normal except as noted Psych: COMMON NORMALS: mental status grossly normal, Normal thought process present, cooperative, activity/motor behavior normal, denies homicidal ideation and denies suicidal ideation THOUGHT PROCESS: Normal thought process present Skin: COMMON NORMALS: no rashes or lesions noted, no wounds and turgor normal GENERAL SKIN EXAM: no rashes or lesions noted and turgor normal Course 2 Vital Signs: Vital signs: Vital Signs Temperature 97.8 F 01/21/24 21:46 Pulse Rate 90 01/22/24 02:00 Respiratory Rate 15 01/21/24 21:46 Blood Pressure 114/76 01/22/24 02:00 Pulse Oximetry 96 01/22/24 02:00 Oxygen Delivery Me thod Room Air 01/22/24 02:00 MDM - OB/Uterine Contractions Medical Decision Making Patient is a 28-year-old female that presents with reports of and spotting. Patient states she is approximately 5 weeks . She did undergo laboratory evaluation as well as an ultrasound. Her laboratory studies reveal no leukocytosis or anemias. She has no electrolyte abnormalities. She does have a quant of 9276. She is A+ does not require RhoGAM US results - measuring 6 weeks with intrauterine . No bleeding visulalized on US. heart 159. 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 At this time We are awaiting a UA. Going to transition care to Dr. Yen. Lab Data 01/21/24 22:21 01/21/24 22:21 Radiology Impressions Obstetrics Ultrasound 01/22/24 23:36 IMPRESSION: 1. Live intrauterine with an estimated gestational age of 5 weeks and 4 days. 2. No definite complications. Laboratory Results WBC 5.80 10^3/uL (3.29-11.43) 01/21/24 22:21 RBC 4.71 10^6/uL (3.85-5.65) 01/21/24 22:21 Hgb 12.90 g/dL (11.27-16.99) 01/21/24 22:21 Hct 40.0 % (36-47) 01/21/24 22:21 MCV 84.9 fl (85-98) L 01/21/24 22:21 MCH 27.4 pg (27-33) 01/21/24 22:21 MCHC 32.3 g/dL (30-55) 01/21/24 22:21 RDW 12.7 % (12.1-15.1) 01/21/24 22:21 Plt Count 249 10^3/cmm (157-399) 01/21/24 22:21 MPV 10.7 fL (7.4-10.4) H 01/21/24 22:21 Neut % (Auto) 54.0 % 01/21/24 22:21 Lymph % (Auto) 28.8 % 01/21/24 22:21 [place] % (Auto) 11.6 % 01/21/24 22:21 Eos % (Auto) 4.1 % 01/21/24 22:21 Baso % (Auto) 1.0 % 01/21/24 22:21 Neut # (Auto) 3.13 10^3/uL (1.8-7.7) 01/21/24 22:21 Lymph # (Auto) 1.7 10^3/uL (0.8-4.8) 01/21/24 22:21 [place] # (Auto) 0.7 10^3/uL (0.2-0.9) 01/21/24 22:21 Eos # (Auto) 0.2 10^3/uL (0.0-0.8) 01/21/24 22:21 Baso # (Auto) 0.1 10^3/uL (0.0-0.1) 01/21/24 22:21 Nucleated RBC % (auto) 0 % 01/21/24 22:21 Nucleated RBCs # 0.0 /100WBC 01/21/24 22:21 Sodium 138 mmol/L (136-145) 01/21/24 22:21 Potassium 3.6 mmol/L (3.5-5.1) 01/21/24 22:21 Chloride 103 mmol/L (98-107) 01/21/24 22:21 Carbon Dioxide 24 mmol/L (22-29) 01/21/24 22:21 Anion Gap 14.6 (5-19) 01/21/24 22:21 BUN 11 mg/dL (6-20) 01/21/24 22:21 Creatinine 0.9 mg/dL (0.5-0.9) 01/21/24 22:21 GFR Calculation 74.0 mL/min (90-130) L 01/21/24 22:21 Glucose 133 mg/dL (65-115) H 01/21/24 22:21 Calculated Osmolality 287 mOsm/kg (285-295) 01/21/24 22:21 Calcium 8.8 mg/dL (8.5-10.5) 01/21/24 22:21 Total Bilirubin 0.3 mg/dL (0.15-1.2) 01/21/24 22:21 AST 16 U/L (0-32) 01/21/24 22:21 ALT 16 U/L (0-33) 01/21/24 22:21 Alkaline Phosphatase 73 U/L (35-105) 01/21/24 22:21 Total Protein 6.5 g/dL (6.6-8.7) L 01/21/24 22:21 Albumin 3.6 g/dL (3.5-5.2) 01/21/24 22:21 Globulin 2.9 g/dL (1.3-4.6) 01/21/24 22:21 Ser , Semi-Qnt 9276.00 mIU/mL 01/21/24 22:21 Urine Color Yellow (Yellow) 01/22/24 00:55 Urine Appearance Cloudy (CLEAR) A 01/22/24 00:55 Urine pH 6.5 (5-7) 01/22/24 00:55 Ur Specific [place] 1.031 (1.005-1.030) H 01/22/24 00:55 Urine Protein Trace (Negative) A 01/22/24 00:55 Urine Glucose (UA) Negative (Normal) 01/22/24 00:55 Urine Ketones Trace (Negative) 01/22/24 00:55 Urine Blood Negative (Negative) 01/22/24 00:55 Urine Nitrate Negative (Negative) 01/22/24 00:55 Urine Bilirubin Negative (Negative) 01/22/24 00:55 Urine Urobilinogen 1.0 mg/dL (Negative) 01/22/24 00:55 Ur Leukocyte Esterase Negative (Negative) 01/22/24 00:55 Urine RBC 11-20 /hpf (0-2) H 01/22/24 00:55 Urine WBC 0-5 /hpf (0-5) 01/22/24 00:55 Ur Squamous Epith Cells 11-20 /hpf (0-5) 01/22/24 00:55 Calcium Oxalate Crystal 25-40 /hpf H 01/22/24 00:55 Amorphous Sediment Not Reportable 01/22/24 00:55 Urine Bacteria 2+ /hpf (NONE) H 01/22/24 00:55 Hyaline Casts 0.40 /lpf 01/22/24 00:55 Blood Type A Positive 01/21/24 22:19 Rho(D) Type Rh positive 01/21/24 22:19 Antibody Screen Negative 01/21/24 22:19 XR interpretation done by ED provider, pending radiology final review Discharge Plan Discharge Patient Disposition: Home Clinical Impression: Vaginal bleeding, Condition: Stable Prescriptions: No Action tizanidine 4 mg tablet 4 mg PO Q8H PRN (Reason: muscle spasticity) Qty: 15 0RF methylprednisolone 4 mg tablets,dose pack See Rx Instructions PO .COMPLEX Qty: 21 0RF Rx Instructions: orally per package directions naproxen 500 mg tablet 500 mg PO BID PRN (Reason: pain) Qty: 20 0RF Discharge Orders: Discharge ED (Routine); Ordered 01/22/24 Ordered By: Artem Yen Referrals: Joey Porter MD [Primary Care Provider] - 1 week Patient Instructions: (ED) Activity Restrictions/Additional Instructions: Thank you for choosing [facility] for your healthcare needs today. Please realize that you were seen in the emergency department and that we are providing you with an emergency medical screening exam and this may not be a complete and all exclusive of all testing and/or medical workup we may need to determine your element or severity of your illness. It is very important that you follow-up as instructed with your primary care provider or specialist for the additional evaluation and to discuss your medical treatment plan. You may return to the emergency department should you have concerns or if your condition changes or worsens in any way. Coding Level of Care Code ED Manager Helpdesk for Chg Fwd Documented by User: Artem Yen DO 01/22/24 02:19 HPI - 2 General: Chief complaint: Vaginal Bleeding Stated complaint: 5 weeks pregant, spotting, cramping Time Seen by Provider: 01/22/24 00:09 Related Data Previous Rx's Medication Instructions Recorded methylprednisolone 4 mg tablets in See Rx Instructions PO .COMPLEX 01/24/23 a dose pack #21 ea naproxen 500 mg tablet 500 mg PO BID PRN pain #20 tabs 01/24/23 tizanidine 4 mg tablet 4 mg PO Q8H PRN muscle spasticity 01/24/23 #15 tabs Allergies Allergy/AdvReac Type Severity Reaction Status Date / Time No Known Allergies Allergy Verified 01/24/23 16:37 [facility] ED 2 PFSH: Medical History Urolithiasis Anxiety and depression Diagnosed in 2020 and is on medication managed by PMD. Does not have a therapist/psychiatrist Surgical History History of lithotripsy History of eye surgery History of delivery x 2 07/18/2015----Documented low transverse section. Performed by Dr. Roman Olson at [facility] in [place], [place]. (2 layer closure of uterus) 03/14/2017----repeat low transverse delivery by Dr. Wheeler at [facility]. Family History Grandfather Diabetes paternal Heart disease paternal Father Hyperlipidemia Hypertension CAD (coronary artery disease) Mother Healthy adult Denies family history of Colon cancer Ovarian cancer Breast cancer Uterine cancer Thyroid disease Stroke Social History Smoking and tobacco/nicotine status: never used tobacco/nicotine Alcohol intake: never Substance/Drug Use: never Household members: spouse and children Marital status: Current occupational status: employed Course 2 Vital Signs: Vital signs: Vital Signs Temperature 97.8 F 01/21/24 21:46 Pulse Rate 90 01/22/24 02:00 Respiratory Rate 15 01/21/24 21:46 Blood Pressure 114/76 01/22/24 02:00 Pulse Oximetry 96 01/22/24 02:00 Oxygen Delivery Me thod Room Air 01/22/24 02:00 MDM - OB/Uterine Contractions Medical Decision Making Patient is a 28-year-old female that presents with reports of and spotting. Patient states she is approximately 5 weeks . She did undergo laboratory evaluation as well as an ultrasound. Her laboratory studies reveal no leukocytosis or anemias. She has no electrolyte abnormalities. She does have a quant of 9276. She is A+ does not require RhoGAM US results - measuring 6 weeks with intrauterine . No bleeding visulalized on US. heart 159. 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 At this time We are awaiting a UA. Going to transition care to Dr. Yen. Care transferred to myself at shift change, reviewed urinalysis lab work and ultrasound, patient be discharged home. Medical Records I reviewed the patient's medical records. Lab Data I reviewed the patient's lab results. 01/21/24 22:21 12/14/24 22:21 Radiology Impressions Obstetrics Ultrasound 01/22/24 23:36 IMPRESSION: 1. Live intrauterine with an estimated gestational age of 5 weeks and 4 days. 2. No definite complications. Laboratory Results WBC 5.80 10^3/uL (3.29-11.43) 01/21/24 22:21 RBC 4.71 10^6/uL (3.85-5.65) 01/21/24 22:21 Hgb 12.90 g/dL (11.27-16.99) 01/21/24 22:21 Hct 40.0 % (36-47) 01/21/24 22:21 MCV 84.9 fl (85-98) L 01/21/24 22:21 MCH 27.4 pg (27-33) 01/21/24 22:21 MCHC 32.3 g/dL (30-55) 01/21/24 22:21 RDW 12.7 % (12.1-15.1) 01/21/24 22:21 Plt Count 249 10^3/cmm (157-399) 01/21/24 22:21 MPV 10.7 fL (7.4-10.4) H 01/21/24 22:21 Neut % (Auto) 54.0 % 01/21/24 22:21 Lymph % (Auto) 28.8 % 01/21/24 22:21 [place] % (Auto) 11.6 % 01/21/24 22:21 Eos % (Auto) 4.1 % 01/21/24 22:21 Baso % (Auto) 1.0 % 01/21/24 22:21 Neut # (Auto) 3.13 10^3/uL (1.8-7.7) 01/21/24 22:21 Lymph # (Auto) 1.7 10^3/uL (0.8-4.8) 01/21/24 22:21 [place] # (Auto) 0.7 10^3/uL (0.2-0.9) 01/21/24 22:21 Eos # (Auto) 0.2 10^3/uL (0.0-0.8) 01/21/24 22:21 Baso # (Auto) 0.1 10^3/uL (0.0-0.1) 01/21/24 22:21 Nucleated RBC % (auto) 0 % 01/21/24 22:21 Nucleated RBCs # 0.0 /100WBC 01/21/24 22:21 Sodium 138 mmol/L (136-145) 01/21/24 22:21 Potassium 3.6 mmol/L (3.5-5.1) 01/21/24 22:21 Chloride 103 mmol/L (98-107) 01/21/24 22:21 Carbon Dioxide 24 mmol/L (22-29) 01/21/24 22:21 Anion Gap 14.6 (5-19) 01/21/24 22:21 BUN 11 mg/dL (6-20) 01/21/24 22:21 Creatinine 0.9 mg/dL (0.5-0.9) 01/21/24 22:21 GFR Calculation 74.0 mL/min (90-130) L 01/21/24 22:21 Glucose 133 mg/dL (65-115) H 01/21/24 22:21 Calculated Osmolality 287 mOsm/kg (285-295) 01/21/24 22:21 Calcium 8.8 mg/dL (8.5-10.5) 01/21/24 22:21 Total Bilirubin 0.3 mg/dL (0.15-1.2) 01/21/24 22:21 AST 16 U/L (0-32) 01/21/24 22:21 ALT 16 U/L (0-33) 01/21/24 22:21 Alkaline Phosphatase 73 U/L (35-105) 01/21/24 22:21 Total Protein 6.5 g/dL (6.6-8.7) L 01/21/24 22:21 Albumin 3.6 g/dL (3.5-5.2) 01/21/24 22:21 Globulin 2.9 g/dL (1.3-4.6) 01/21/24 22:21 Ser , Semi-Qnt 9276.00 mIU/mL 01/21/24 22:21 Urine Color Yellow (Yellow) 01/22/24 00:55 Urine Appearance Cloudy (CLEAR) A 01/22/24 00:55 Urine pH 6.5 (5-7) 01/22/24 00:55 Ur Specific [place] 1.031 (1.005-1.030) H 01/22/24 00:55 Urine Protein Trace (Negative) A 01/22/24 00:55 Urine Glucose (UA) Negative (Normal) 01/22/24 00:55 Urine Ketones Trace (Negative) 01/22/24 00:55 Urine Blood Negative (Negative) 01/22/24 00:55 Urine Nitrate Negative (Negative) 01/22/24 00:55 Urine Bilirubin Negative (Negative) 01/22/24 00:55 Urine Urobilinogen 1.0 mg/dL (Negative) 01/22/24 00:55 Ur Leukocyte Esterase Negative (Negative) 01/22/24 00:55 Urine RBC 11-20 /hpf (0-2) H 01/22/24 00:55 Urine WBC 0-5 /hpf (0-5) 01/22/24 00:55 Ur Squamous Epith Cells 11-20 /hpf (0-5) 01/22/24 00:55 Calcium Oxalate Crystal 25-40 /hpf H 01/22/24 00:55 Amorphous Sediment Not Reportable 01/22/24 00:55 Urine Bacteria 2+ /hpf (NONE) H 01/22/24 00:55 Hyaline Casts 0.40 /lpf 01/22/24 00:55 Blood Type A Positive 01/21/24 22:19 Rho(D) Type Rh positive 01/21/24 22:19 Antibody Screen Negative 01/21/24 22:19 Discharge Plan Discharge Patient Disposition: Home Clinical Impression: Vaginal bleeding, Condition: Stable Prescriptions: No Action tizanidine 4 mg tablet 4 mg PO Q8H PRN (Reason: muscle spasticity) Qty: 15 0RF methylprednisolone 4 mg tablets,dose pack See Rx Instructions PO .COMPLEX Qty: 21 0RF Rx Instructions: orally per package directions naproxen 500 mg tablet 500 mg PO BID PRN (Reason: pain) Qty: 20 0RF Discharge Orders: Discharge ED (Routine); Ordered 01/22/24 Ordered By: Artem Yen Referrals: Joey Porter MD [Primary Care Provider] - 1 week Patient Instructions: (ED) Activity Restrictions/Additional Instructions: Thank you for choosing [facility] for your healthcare needs today. Please realize that you were seen in the emergency department and that we are providing you with an emergency medical screening exam and this may not be a complete and all exclusive of all testing and/or medical workup we may need to determine your element or severity of your illness. It is very important that you follow-up as instructed with your primary care provider or specialist for the additional evaluation and to discuss your medical treatment plan. You may return to the emergency department should you have concerns or if your condition changes or worsens in any way. Coding Level of Care Code ED Manager Helpdesk for Ayesha Worthy
[2024-01-22 01:19] LABS: Bilirubin Urine Negative (Negative); Blood Urine Negative (Negative); Glucose Urine UA Negative (Normal); Ketones Urine Trace (Negative); Leukocyte Esterase Urine Negative (Negative); Nitrate Urine Negative (Negative); Protein Urine Trace (Negative); Urine Appearance Cloudy (CLEAR); Urine Color Yellow (Yellow); pH Urine 6.5 (5-7)
[2024-01-22 01:25] LABS: Add Urine Microscopic? YES; Bacteria Urine 2+ /hpf; Universal Test for UA Present (0); WBC Urine 0-5 /hpf (0-5)
[2024-01-22 01:34] LABS: Calcium Oxalate Crystals Urine 25-40 /hpf; Specific Gravity, Urine 1.031 (1.005-1.030)
[2024-01-22 01:35] LABS: Add Urine Culture? No
--- NOTE | 2024-01-22 23:36 | USR_ITS ---
PROCEDURE INFORMATION: Exam: US First Trimester, Transabdominal and US , Transvaginal Exam date and time: 01/22/2024 12:04 AM Age: 28 years old Clinical indication: Lmp or gestational age (in weeks): 6w0d; Antepartum complications; Bleeding; ; Additional info: About 5 weeks gestation, vaginal bleeding, LABS AND CLINICAL REPORTS: Gestational age (Established): 6 w 2 d Estimated due date (Established): 09/14/2024 TECHNIQUE: Imaging protocol: Real-time transabdominal obstetrical ultrasound of the maternal pelvis and a first trimester , less than 14 weeks 0 days, with image documentation. Transvaginal imaging was used for better evaluation of the fetus, adnexa, and/or cervix. COMPARISON: CT kidney stone [id number] 01/05/2022 2:57 AM FINDINGS: GESTATION: Gestation: Single intrauterine gestation. Embryo/ cardiac activity (BPM): 159 bpm Extra-embryonic membranes/Placenta: Unremarkable. No subchorionic bleed. Amniotic/Chorionic fluid: Amniotic and extra-amniotic fluid are normal for gestational age. BIOMETRY: Gestational age (AUA): 5 w 4 d Mean sac diameter: 0.8 cm. MATERNAL: Uterus: Unremarkable. Nabothian cysts. Cervix: Cervical length measures 4.5 cm. Right ovary/adnexa: Obscured by lack of adequate acoustic window. Left ovary/adnexa: Obscured by lack of adequate acoustic window. Intraperitoneal space: Minimal free fluid. US/US OB <=14 wk fetus w transvag IMPRESSION: 1. Live intrauterine with an estimated gestational age of 5 weeks and 4 days. 2. No definite complications.
== END 2024-01-22 02:22 | disposition home or self-care (01) ==
PROVIDERS: Emergency Medicine; Emergency Provider Nurse Practitioner; PCP Family Medicine
DX: O20.9 Hemorrhage in early pregnancy, unspecified (principal); Z3A.01 Less than 8 weeks gestation of pregnancy
CPT/HCPCS: 36415; 76801; 76817; 80053; 81001; 84702; 85025; 86850; 86900; 99284

== ENCOUNTER 2024-08-28 10:00 | Outpatient (CLI) | payer BC, MEDICAID, SELFPAY ==
--- NOTE | 2024-08-28 10:35 | P.ANESASSM_ITS ---
Pre-Anesthetic Assessment Height/Weight: Height 1.57 m Operation Date: 09/11/24 07:20 Proposed Procedures p Section Repeat(Not Applicable) - Philipp Alatorre MD Familial anesthetic complications: None Was Beta Adán taken within 24 hours: N/A Was Clonidine taken within 24 hours: N/A Social No alcohol and No tobacco Exam alert, oriented x 3, clear to auscultation bilaterally and regular rate & rhythm Airway Mallampati: Class III Dentition: full CV/HEM Hypertension Metabolic Morbid Obesity Anesthetic Plan ASA status: 3 Anesthesia: Regional (specify below) Other: spinal Risk of > 500 ml blood loss (7ml/kg in children): Yes, adequate IV access and fluids planned Medications/Allergies Home Medications ?Medication ?Instructions ?Recorded ?Confirmed ?Last Taken ?Type methylprednisolone 4 mg tablets in See Rx Instructions PO .COMPLEX 01/24/23 01/27/23 01/27/23 Rx a dose pack #21 ea naproxen 500 mg tablet 500 mg PO BID PRN pain #20 t abs 01/24/23 01/27/23 Unknown Rx tizanidine 4 mg tablet 4 mg PO Q8H PRN muscle spast icity 01/24/23 01/27/23 Unknown Rx #15 tabs Allergies Allergy/AdvReac Type Severity Reaction Status Date / Time No Known Allergies Allergy Verified 01/24/23 16:37 PFSH Anesthesia Medical History (Updated 01/30/24 @ 00:00 by MARIA DEL ROSARIO Schmid) Urolithiasis Anxiety and depression Diagnosed in 2020 and is on medication managed by PMD. Does not have a therapist/psychiatrist Surgical History History of lithotripsy History of eye surgery History of delivery x 2 07/18/2015----Documented low transverse section. Performed by Dr. Roman Olson at [facility] in [place], [place]. (2 layer closure of uterus) 03/14/2017----[place] [facility] [place] Family History Grandfather Diabetes paternal Heart disease paternal Father Hyperlipidemia Hypertension CAD (coronary artery disease) Mother Healthy adult Denies family history of Colon cancer Ovarian cancer Breast cancer Uterine cancer Thyroid disease Stroke Social History Smoking and tobacco/nicotine status: never used tobacco/nicotine Alcohol intake: never Substance/Drug Use: never Household members: spouse and children Marital status: Current occupational status: employed
== END 2024-08-28 10:01 | disposition home or self-care (01) ==
LOC: OPOB 09-07 07:32
PROVIDERS: PCP Family Medicine; Visit Provider Family Medicine
DX: Z53.9 Procedure and treatment not carried out, unspecified reason (principal)

== ENCOUNTER 2024-09-04 14:31 | Inpatient (IN) | payer BC, MEDICAID, SELFPAY ==
[2024-09-04] VITALS (42 sets, daily range): BP systolic 115–196; BP diastolic 50–97; PULSE 87–117; RESP 16–18; TEMP 36.7–36.9; O2SAT 91–100; BMI 58.8
[2024-09-04 15:24] LABS: Hematocrit 37.7 % (36-47); Hemoglobin 12.10 g/dL (11.27-16.99); Mean Corpuscular HGB Conc 32.1 g/dL (30-55); Mean Corpuscular Hemoglobin 25.7 pg (27-33); Mean Corpuscular Volume 80.2 fl (85-98); Nucleated Red Blood Cells % 0 %; Platelet Count 316 10^3/cmm (157-399); Red Blood Count 4.70 10^6/uL (3.85-5.65); White Blood Count 15.91 10^3/uL (3.29-11.43)
[2024-09-04] MEDS: BUPivacaine 0.5% INJ 30 mL INJECTION (16:17)
[2024-09-04] MEDS: metoclopramide 5 mg/mL SDV 2 mL 10 MG IVP (16:17)
--- NOTE | 2024-09-04 16:23 | ANES.PREANE2 ---
Pre-Anesthetic Assessment Height/Weight: Height 5 ft 2 in Weight 322 lb Pulse BP O2 Del Method 98 141/78 Room Air 09/04/24 15:45 09/04/24 15:45 09/04/24 14:20 Preop Diagnosis: Gestational hypertension Last intake: Intake Last Liquid Date 09/04/24 Last Liquid Time 08:30 Last Solid Date 09/04/24 Last Solid Time 08:30 Social No alcohol and No tobacco Exam alert, oriented x 3, clear to auscultation bilaterally and regular rate & rhythm Airway Submandibular: within normal limits Cervical ROM: within normal limits Mallampati: Class II Dentition: full Anesthetic Plan ASA status: 3 Anesthesia: Regional (specify below) Other: G4, P3 here for , added on today for preeclampsia with elevated BP in office Patient is over 38 weeks currently Patient ate cereal around 8:30 AM today No prior issues with anesthesia On metoprolol at baseline, taken this a.m. Preop BP 141/78 Labs reviewed from today, WBC 15.9. Patient is currently afebrile denies any recent illness METs greater than 4 Plan for routine with spinal anesthetic Medications/Allergies Home Medications ?Medication ?Instructions ?Recorded ?Confirmed ?Last Taken ?Type citalopram 10 mg tablet 10 mg PO DAILY 09/04/24 09/04/24 09/04/24 08:30 History metoprolol tartrate 50 mg tablet 50 mg PO DAILY 09/04/24 09/04/24 09/04/24 08:30 History [id number] 1 mg 1 tab PO DAILY 09/04/24 09/04/24 09/04/24 08:30 History tablet Allergies Allergy/AdvReac Type Severity Reaction Status Date / Time No Known Allergies Allergy Verified 01/24/23 16:37 [facility] Anesthesia Medical History (Updated 01/30/24 @ 00:00 by MARIA DEL ROSARIO Schmid) Urolithiasis Anxiety and depression Diagnosed in 2020 and is on medication managed by PMD. Does not have a therapist/psychiatrist Surgical History History of lithotripsy History of eye surgery History of delivery x 2 07/18/2015----Documented low transverse section. Performed by Dr. Roman Olson at [facility] in [place], [place]. (2 layer closure of uterus) 03/14/2017----repeat low transverse delivery [place] Dr. Wheeler [place] [facility] [place] Family History Grandfather Diabetes paternal Heart disease paternal Father Hyperlipidemia Hypertension CAD (coronary artery disease) Mother Healthy adult Denies family history of Colon cancer Ovarian cancer Breast cancer Uterine cancer Thyroid disease Stroke Social History Smoking and tobacco/nicotine status: never used tobacco/nicotine Alcohol intake: never Substance/Drug Use: never Household members: spouse and children Marital status: Current occupational status: employed Female Reproductive History : 4 Data Anesthesia 09/04/24 15:10 Short CBC 09/04/24 Range/Units 15:10 WBC 15.91 H (3.29-11.43) 10^3/uL Hgb 12.10 (11.27-16.99) g/dL Hct 37.7 (36-47) % MCV 80.2 L (85-98) fl Plt Count 316 (157-399) 10^3/cmm Neut % (Auto) 79.2 % Neut # (Auto) 12.61 H (1.8-7.7) 10^3/uL
--- NOTE | 2024-09-04 16:27 | P.HP_ITS ---
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 Her has been scheduled for the following week. Unfortunately, today when she showed up to my office her blood pressures were consistently elevated. Her systolic blood pressures were checked 3 times and found to be well in the 140s. Due to his history of chronic hypertension that was currently controlled prior to this point, the decision was made to deliver the baby at this time. Her has been notable for chronic hypertension has been well-controlled. She is also noted to have a macrosomic baby. She had borderline gestational diabetes labs. Otherwise her was unremarkable. She had consistent care. She had no other symptoms of preeclampsia. Present Details : 4 Para: 3 Labs Rubella: Immune RPR: Negative GBS: Negative Review of Systems 2 General: Reports: 10 or more systems reviewed and unremarkable except in HPI and below Const: Reports: fatigue; Denies: fever(s) Eyes: Denies: change in vision Card: Denies: chest pain Musc: Reports: back pain Colton/Lymph: Denies: easy bruising Medications/Allergies Home Medications ?Medication ?Instructions ?Recorded ?Confirmed ?Last Taken ?Type citalopram 10 mg tablet 10 mg PO DAILY 09/04/24/11/0109/04/24 08:30 History metoprolol tartrate 50 mg tablet 50 mg PO DAILY 09/04/24 09/04/24 08:30 History fbjrdcyi-[id number]-[id number] 1 mg 1 tab PO DAILY 09/04/24 09/04/24 08:30 History tablet Allergies Allergy/AdvReac Type Severity Reaction Status Date / Time No Known Allergies Allergy Verified 01/24/23 16:37 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 Does not have a therapist/psychiatrist Surgical History History of lithotripsy History of eye surgery History of delivery x 2 07/18/2015----Documented low transverse section. Performed by Dr. Roman Olson at [facility] in [place], [place]. (2 layer closure of uterus) 03/14/2017----repeat low transverse delivery by Dr. Wheeler at [facility]. Family History Grandfather Diabetes paternal Heart disease paternal Father Hyperlipidemia Hypertension CAD (coronary artery disease) Mother Healthy adult Denies family history of Colon cancer Ovarian cancer Breast cancer Uterine cancer Thyroid disease Stroke Social History Smoking and tobacco/nicotine status: never used tobacco/nicotine Alcohol intake: never Substance/Drug Use: never Household members: spouse and children Marital status: Current occupational status: employed History History History 2 3 Term 3 0 Miscarriages/Ectopic 0 Living Children 3 Vitals/I&O/Wt Last Vital Signs Pulse 98 09/04/24 15:45 BP 141/78 09/04/24 15:45 O2 Del Method Room Air 09/04/24 14:20 Weight last 48 hrs Weight 322 lb Physical Exam 2 Const: COMMON NORMALS: patient oriented x3 and alert HENMT: COMMON NORMALS: moist oral mucous membranes HEAD & SCALP: normal to inspection Chest: COMMONS NORMALS: normal inspection of the chest Resp: COMMON NORMALS: clear to auscultation bilaterally AUSCULTATION: clear to auscultation bilaterally Cardio: COMMON NORMALS: regular rate and regular rhythm RATE: regular rate RHYTHM: regular rhythm GI: INSPECTION: Yes normal to inspection and Yes other (Gravid) Extremity: COMMON NORMALS: normal to inspection GENERAL: Yes edema (Trace) Neuro: COMMON NORMALS: patient oriented x3, moves all extremities and no sensory deficits noted SENSORIUM/ORIENTATION: Yes alert Psych: COMMON NORMALS: mental status grossly normal Skin: COMMON NORMALS: no rashes or lesions noted GENERAL SKIN EXAM: no rashes or lesions noted Data 09/04/24 15:10 Results Labs OB ([facility]): 2 Obstetrics US 05/15/24 Blood Type A Positive 01/21/24 Antibody Screen Negative 01/21/24 Hct, (36-47) 37.7 % Today Hgb, (11.27-16.99) 12.10 g/dL Today Rho(D) Type Rh positive 01/21/24 Plt Count, (157-399) 316 10^3/cmm Today Ser , Semi-Qnt 9276.00 mIU/mL 01/21/24 A&P Assessment and plan 1. 38 weeks gestation of : Will proceed with a repeat section. We have discussed the risks and alternatives with the patient. These include the risks of bleeding, infection, and damage to intra-abdominal organs. She also understands her risk for infection are greater due to her body habitus. 2. Chronic hypertension: 3. -induced hypertension in third trimester: PDMP PDMP Reviewed: Not Reviewed Attestations 2 Medical Necessity Statement*: I anticipate routine and post care. Coding Level of Care Code Acute Code for Chg Fwd Diagnoses 38 weeks gestation of Z3A.38 Chronic hypertension I10 -induced hypertension in third trimester O13.3
--- NOTE | 2024-09-04 18:03 | PM.OP ---
Operative Report Date of procedure: September 04, 2024 Pre-op diagnosis: 1. 29-year-old 4 para 2-1-0-3 at 38 weeks estimated gestational age 2. Chronic hypertension with superimposed gestational hypertension 3. History of section 4. macrosomia based on multiple ultrasounds Post-op diagnosis: Status post low-transverse section Procedure done: Lower transverse section Specimens removed/disposition: 1. Male with a weight of 8 pounds 3 ounces and Apgars of 8 and 9 2. Placenta with a three-vessel cord delivered intact Surgeon: Philipp Alatorre MD Anesthesia: Spinal Estimated blood loss: 600 Complications: None Procedure: The patient was brought back to the operating room where she was prepped and draped in usual sterile fashion. Her pannus was taped up in order to displace it from the surgical field. Anesthesia was found to be adequate. A lower transverse skin incision was then made with a #10 blade. I then dissected down to the underlying subcutaneous tissue until arriving at the prerectal fascia. The fascia was then nicked with the scalpel bilaterally. The fascial incisions were then carried laterally with Arrington scissors. Attention was then turned to the superior aspect of the incision which was grasped with kochers and tented up away from the underlying rectus abdominis muscles. The muscles were then dissected away from the fascia manually, and later with Arrington scissors. Attention was then turned to the inferior aspect of the incision, and the fascia was dissected away from the underlying muscle in similar fashion. The rectus abdominis muscles were then spread manually. The peritoneum was entered manually. Excellent visualization of the uterus was noted. A lower transverse uterine incision was then made with a #10 blade. Upon arriving at the intrauterine cavity, the uterine incision was then extended manually. The was noted to be in a breech position. The baby was delivered without difficulty. After delivery of the head, the mouth and nose were suctioned at the site of the incision. There was no meconium. There was no nuchal cord. The cord was cut and clamped. The baby was then handed to the waiting nurse. The placenta was removed intact. The uterus was externalized. The intrauterine cavity was cleansed of any remaining debris. The uterine incision was reapproximated in 2 layers. The first layer was performed with 0 Vicryl in a running locked stitch. The second layer was an imbricating stitch also using 0 Vicryl. The uterus was replaced into the abdomen. The peritoneum was then irrigated with warm saline. I reexamined the uterine incision and found it to be hemostatic. The rectus abdominis muscles were then reapproximated using 0 Vicryl in a running stitch. The fascia was then reapproximated using 0 Vicryl in running stitch. The subcutaneous tissue was then reapproximated using 0 Vicryl in a running stitch. The skin was then reapproximated using 4-0 Vicryl in a running subcuticular stitch. A sterile dressing was placed. All counts were correct x2. Both the mother and baby were in stable condition.
[2024-09-04] MEDS: HYDROcodone-acetaminophen 5-325 mg Tablet PO (23:36)
[2024-09-05] VITALS (8 sets, daily range): BP systolic 101–129; BP diastolic 50–64; PULSE 82–92; RESP 16–17; TEMP 35.4–36.8
[2024-09-05] MEDS: HYDROcodone-acetaminophen 5-325 mg Tablet PO ×5 (03:44→18:50)
[2024-09-05 05:16] LABS: Hematocrit 32.9 % (36-47); Hemoglobin 10.40 g/dL (11.27-16.99); Mean Corpuscular HGB Conc 31.6 g/dL (30-55); Mean Corpuscular Hemoglobin 25.7 pg (27-33); Mean Corpuscular Volume 81.2 fl (85-98); Platelet Count 249 10^3/cmm (157-399); Red Blood Count 4.05 10^6/uL (3.85-5.65); White Blood Count 14.84 10^3/uL (3.29-11.43)
--- NOTE | 2024-09-05 07:00 | P.PN_ITS ---
GENERAL STORE MANAGER Subjective 2 Subjective: Interval history: The patient is doing well overall. Urine output has been adequate. Her bleeding has been appropriate. Her pain has been well-controlled. She has not passed flatus. Her blood pressures have been within normal limits Labor: Amniotic Membrane Status: Intact Monitor Mode: External C ontraction Pattern: Irregular Vitals/I&O/Wt Last Vital Signs Temp 98.3 F 09/05/24 04:00 Pulse 89 09/05/24 03:59 Resp 16 09/04/24 18:25 BP 101/50 09/05/24 03:59 Pulse Ox 94 09/04/24 19:40 O2 Del Method Room Air 09/04/24 18:25 09/04/24 09/05/24 09/05/24 22:59 06:59 14:59 Intake Total 1800 / 1800 1000 / 2800 Output Total 925 / 925 405 / 1330 Balance 875 / 875 595 / 1470 Weight last 48 hrs Weight 322 lb Physical Exam 2 Narrative: She is in no acute distress Lungs are clear auscultation bilaterally Her heart has a regular rate and rhythm Her fundus is below the umbilicus and firm Her dressing is clean, dry and intact Her extremities have trace edema Urinary Catheter Management: Lamb Latex Free: Cath Placed During This Visit: yes Reason for Continuing Indwelling Catheter: Required Immobilization for Trauma or Surgery or Anesthesia Urinary Catheter Date of Insertion: 09/04/24 Urinary Catheter Time of Insertion: 16:45 Data 09/05/24 05:11 A&P Assessment and plan 1. Status post : The patient appears to be doing well. Her urine output has been borderline. We will bolus her a liter of LR. We will advance diet if she passes flatus, or if she is hungry at dinner we will consider advancing her diet as well. 2. Chronic hypertension: 3. -induced hypertension in third trimester: PDMP PDMP Reviewed: Not Reviewed Attestations 2 Medical Necessity Statement*: I anticipate routine post care Coding Level of Care Code Acute Code for Chg Fwd Diagnoses Status post Z98.891 Chronic hypertension I10 -induced hypertension in third trimester O13.3
[2024-09-05] MEDS: PRENATAL VIT NO.130/IRON/FOLIC 1 EACH TABLET PO (09:33)
[2024-09-06] MEDS: HYDROcodone-acetaminophen 5-325 mg Tablet PO ×3 (00:15→09:28)
[2024-09-06 00:17] VITALS: BP 116/58; PULSE 82
[2024-09-06 05:01] VITALS: BP 114/58; PULSE 95
--- NOTE | 2024-09-06 08:24 | P.DS_ITS ---
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 Status post : 2. Chronic hypertension: 3. -induced hypertension in third trimester: Reason for Visit Reason for Visit: CS Hospital Course Hospital Course The patient presented to the hospital because of elevated blood pressures in the clinic. The blood pressures were taken multiple times. Her systolic blood pressure was in the 150s or greater on 3 different blood pressure readings. As result she was sent to the hospital for presumed repeat section. Otherwise, the patient was not having any other symptoms of preeclampsia. She did have 1+ protein in her urine in the office. The was then performed. There were no complications. Her course was also unremarkable. Her bleeding was within normal limits. Her pain was well- controlled. There were no concerns. Information Peripartum Data: Infant Delivery Method: Physical Exam Narrative: She is in no acute distress Lungs are clear auscultation bilaterally Her heart has a regular rate and rhythm Her fundus is below the umbilicus and firm Her dressing is clean, dry and intact Her extremities have trace edema Urinary Catheter Management: Lamb Latex Free: Cath Placed During This Visit: yes, but has since been removed by the nurse Reason for Continuing Indwelling Catheter: Decision to DC Catheter Urinary Catheter Date of Insertion: 09/04/24 Urinary Catheter Time of Insertion: 16:45 Date Urinary Catheter Removed: 09/05/24 Time Urinary Catheter Discontinued: 09:45 History History History 3 Term 3 0 Miscarriages/Ectopic 0 Living Children 3 Discharge Data Studies Completed and Pending Pending at discharge Category Date Time Status High Risk PP Hemorrhage Stat Lab 09/04/24 18:21 Received Laboratory Results WBC 14.84 10^3/uL (3.29-11.43) H 09/05/24 05:11 RBC 4.05 10^6/uL (3.85-5.65) 09/05/24 05:11 Hgb 10.40 g/dL (11.27-16.99) L 09/05/24 05:11 Hct 32.9 % (36-47) L 09/05/24 05:11 MCV 81.2 fl (85-98) L 09/05/24 05:11 MCH 25.7 pg (27-33) L 09/05/24 05:11 MCHC 31.6 g/dL (30-55) 09/05/24 05:11 RDW 14.1 % (12.1-15.1) 09/05/24 05:11 Plt Count 249 10^3/cmm (157-399) 09/05/24 05:11 MPV 10.9 fL (7.4-10.4) H 09/05/24 05:11 Neut % (Auto) 79.2 % 09/04/24 15:10 Lymph % (Auto) 10.7 % 09/04/24 15:10 [facility] % (Auto) 8.5 % 09/04/24 15:10 Eos % (Auto) 0.2 % 09/04/24 15:10 Baso % (Auto) 0.6 % 09/04/24 15:10 Neut # (Auto) 12.61 10^3/uL (1.8-7.7) H 09/04/24 15:10 Lymph # (Auto) 1.7 10^3/uL (0.8-4.8) 09/04/24 15:10 [facility] [place] [facility] # (Auto) 1.4 10^3/uL (0.2-0.9) H 09/04/24 15:10 Eos # (Auto) 0.0 10^3/uL (0.0-0.8) 09/04/24 15:10 Baso # (Auto) 0.1 10^3/uL (0.0-0.1) 09/04/24 15:10 Nucleated RBC % (auto) 0 % 09/04/24 15:10 Nucleated RBCs # 0.0 /100WBC 09/04/24 15:10 Blood Type A Positive 09/04/24 15:10 Rho(D) Type Rh positive 09/04/24 15:10 Antibody Screen Negative 09/04/24 15:10 Vitals Last Vital Signs Temp 97.9 F 09/05/24 16:02 Pulse 95 09/06/24 05:01 Resp 16 09/05/24 19:30 BP 114/58 09/06/24 05:01 Pulse Ox 94 09/04/24 19:40 O2 Del Method Room Air 09/04/24 18:25 Results Labs OB ([facility]): Obstetrics US 05/15/24 Blood Type A Positive 09/04/24 Antibody Screen Negative 09/04/24 Hct, (36-47) 32.9 % L 09/05/24 Hgb, (11.27-16.99) 10.40 g/dL L 09/05/24 Rho(D) Type Rh positive 09/04/24 Plt Count, (157-399) 249 10^3/cmm 09/05/24 Ser , Semi-Qnt 9276.00 mIU/mL 01/21/24 Discharge Plan Discharge Patient Disposition: Home Condition: Stable Prescriptions: New ibuprofen 800 mg Tablet 800 mg PO TID Qty: 45 0RF hydrocodone-acetaminophen 5-325 mg Tablet 1 tab PO Q6H PRN (Reason: Moderate To Severe Pain) Qty: 28 0RF docusate sodium 100 mg Capsule 100 mg PO BID Qty: 14 0RF Continued citalopram 10 mg tablet 10 mg PO DAILY [id number] 1 mg Tablet 1 tab PO DAILY metoprolol tartrate 50 mg tablet 50 mg PO DAILY Discharge Order = DC NOW: Discharge Order (Routine); Ordered 09/06/24 Ordered By: Philipp Alatorre Referrals: Philipp Alatorre MD [Physician, Family Practice] - 09/11/24 1:00 pm Discharge Diet: Usual diet Discharge Activity: Limit activity as instructed Patient Instructions: Depression (DC), Opioid Safety (DC), Preeclampsia and Eclampsia After Delivery (GEN), Hemorrhage (DC), OB - [place], OB Discharge Report, OB Food/Drug Interaction Guide, OB Care at Home, Opioid Safety, Patient Portal & Teresa Instructions, Abnormal Bleeding Discharge Attestations DIRECTOR PROCESS ENGINEERING Time Spent in Discharge Care*: less than 30 min Coding Level of Care Code Acute Code for Chg Fwd Diagnoses Status post Z98.891 Chronic hypertension I10 -induced hypertension in third trimester O13.3
[2024-09-06] MEDS: PRENATAL VIT NO.130/IRON/FOLIC 1 EACH TABLET PO (08:50)
[2024-09-06 09:40] VITALS: BP 121/69; PULSE 99; RESP 14; TEMP 36.6
[2024-09-06 12:36] LABS: High Risk PP Hemorrhage BBK Notified
== END 2024-09-06 10:00 | disposition home or self-care (01) | DRG 788 ==
LOC: OPOB 14:32 → OBGYN 14:32
PROVIDERS: Admitting Provider Family Medicine; PCP Family Medicine; Visit Provider Family Medicine
PROC: 10D00Z1 Extraction of Products of Conception, Low, Open Approach (ICD-10-PCS; CPT 59514; principal; 2024-09-04 16:30)
DX: O10.02 Pre-existing essential hypertension complicating childbirth (principal); O32.1XX0 Maternal care for breech presentation, not applicable or unspecified; O34.211 Maternal care for low transverse scar from previous cesarean delivery; N85.8 Other specified noninflammatory disorders of uterus; Z3A.38 38 weeks gestation of pregnancy; Z37.0 Single live birth; F32.A Depression, unspecified; F41.9 Anxiety disorder, unspecified; O99.344 Other mental disorders complicating childbirth; R73.03 Prediabetes; O99.284 Endocrine, nutritional and metabolic diseases complicating childbirth
CPT/HCPCS: 36415; 51702; 59025; 59409; 85025; 85027; 86850; 86900; 96374; 99211; J1885; J2274; J2405; J2765; J3010; J3490; J7030; J7120; J7121; J9999